=== PATIENT | female | born 1960 | race Caucasian/White ===

== ENCOUNTER 2020-09-16 12:25 | Inpatient (IN) | payer BC, MEDICAID ==
[~2020-09-16] VITALS: Ht 167.6 cm; Wt 74.4 kg
[2020-09-16] VITALS (7 sets, daily range): BP systolic 108–119; BP diastolic 66–85
--- NOTE | 2020-09-16 12:45 | NUR ---
MOVE SHEET SUBMITTED AND CALLED FOR TELE BED.
[2020-09-16] MEDS ORDERED: FUROSEMIDE 40 MG/4 ML VIAL IV ONE (13:00)
[2020-09-16] MEDS ORDERED: NITROGLYCERIN 0.4 MG/TAB BOTTLE SL ONE (13:00)
[2020-09-16] MEDS ORDERED: POTA10CA43 PO (13:01)
[2020-09-16] MEDS ORDERED: FURO20TA4 PO (13:01)
[2020-09-16] MEDS ORDERED: LISI10TA5 PO (13:01)
[2020-09-16 13:08] LABS: BASOPHILS % (AUTO) 0.1 % (0.0-2.0); HEMATOCRIT 40 % (33-45); HEMOGLOBIN 12.1 g/dL (11.5-14.8); LYMPHOCYTES # (AUTO) 0.4 /CMM (0.8-4.8); LYMPHOCYTES % (AUTO) 3.8 % (20.0-44.0); MEAN CORPUSCULAR HGB CONC 30 g/dl (31.0-36.0); MEAN CORPUSCULAR VOLUME 89 fL (82-100); MONOCYTES # (AUTO) 0.7 /CMM (0.1-1.30); MONOCYTES % (AUTO) 7.2 % (2.0-12.0); NEUTROPHILS # (AUTO) 8.6 /CMM (1.8-8.9); NEUTROPHILS % (AUTO) 88.9 % (43.0-81.0); PLATELET COUNT (AUTO) 231 /CMM (150-450); RED BLOOD CELL COUNT(AUTO) 4.46 MIL/uL (4.0-5.2); WHITE BLOOD COUNT (AUTO) 9.7 K/uL (4.3-11.0)
[2020-09-16 13:09] LABS: ABG BASE EXCESS 1.9 mmol/L; ABG OXYGEN SATURATION 89.1 % (92.0-98.5); ABG PCO2 37.5 mmHg (35.0-45.0); ABG PH 7.454 (7.350-7.450); ABG PO2 61.4 mmHg (75.0-100.0); AaDO2 151.8 mmHg; COHb 0.2 % (0.5-1.5); MetHb 0.3 % (0.0-1.5); O2Hb 88.7 % (94.0-97.0); SITE, ABG Right Radial; VENT MODE, BG NC 4 L
--- NOTE | 2020-09-16 13:09 | NUR ---
[facility] TO ER BED 5. AAOX2. NOT IN RESP DISTTRESS BUT SATTING @ 84% DESPITE BEING ON O2 VIA NC @ 4LPM. PT IS BROUGHT LOW O2 SAT REPORTED IN THE 70-80S. PT IS CHF AND COPD. PT IS NOTED WITH GENERALIZED EDEMA. WAS A THE BEDSIDE FOR EVAL. ORDERS RECEIVED, NOTED ADN CARRIED OUT. IV TYRELL ESTABLISHED ON L AC 22G. BLOOD DRAWN AND GIVEN TO DRY KILN BURNER.
[2020-09-16 13:16] LABS: CARBON DIOXIDE 23 mmol/L (21-32); CHLORIDE 100 mmol/L (98-107); CREATININE 0.9 mg/dL (0.6-1.3); GLUCOSE 101 mg/dL (74-106); POTASSIUM 5.5 mmol/L (3.5-5.1); SODIUM SERUM 133 mmol/L (136-145); UREA NITROGEN, BLOOD 51 mg/dL (7-18)
[2020-09-16] MEDS ORDERED: FUROSEMIDE 40 MG/4 ML VIAL ONE (13:19)
[2020-09-16] MEDS ORDERED: NITROGLYCERIN 0.4 MG/TAB BOTTLE ONE (13:19)
[2020-09-16] MEDS ORDERED: ALBU90AE INH (13:21)
--- NOTE | 2020-09-16 13:22 | NUR ---
RT AT BEDSIDE, PLACING PT ON BIPAP.
--- NOTE | 2020-09-16 13:26 | NUR ---
[facility] CALLED LINE CONTROLLER PAGED.
--- NOTE | 2020-09-16 13:27 | NUR ---
ORDERED TO HOLD NITRO STAT D/T BP 112/72. NOTED AND CARRIED OUT
[2020-09-16 13:41] LABS: ALANINE AMINOTRANSFERASE < 6 U/L (12-78); ALBUMIN 2.5 g/dL (3.4-5.0); ALKALINE PHOSPHATASE 158 U/L (46-116); ASPARTATE AMINOTRANSFERASE 56 U/L (15-37); BILIRUBIN,DIRECT 0.8 mg/dL (0.0-0.2); BILIRUBIN,TOTAL 1.1 mg/dL (0.2-1.0); TOTAL PROTEIN, SERUM 6.6 g/dL (6.4-8.2)
--- NOTE | 2020-09-16 13:41 | NUR ---
CALLED [facility] AGAIN ITS BEA
[2020-09-16 14:00] LABS: B-TYPE NATRIURETIC PEPTIDE 39539 PG/ML (0-125)
[2020-09-16] MEDS ORDERED: MAG HYDROX/AL HYDROX/SIMETH 30 ML UDC PO PRN (14:00)
[2020-09-16] MEDS ORDERED: ENOXAPARIN SODIUM 30 MG/0.3 ML DISP.SYRIN SQ SCH (14:00)
[2020-09-16] MEDS ORDERED: Z GUARD REMEDY 2 OZ OINT TP PRN (14:00)
[2020-09-16] MEDS ORDERED: ACETAMINOPHEN 325 MG TABLET PO PRN (14:00)
[2020-09-16] MEDS ORDERED: ONDANSETRON HCL/PF 4 MG/2 ML VIAL IVP PRN (14:00)
[2020-09-16] MEDS ORDERED: HYDROCODONE/APAP 5/325MG TABLET PO PRN (14:00)
[2020-09-16] MEDS ORDERED: MAGNESIUM HYDROXIDE 30 ML UDC PO PRN (14:00)
[2020-09-16] MEDS ORDERED: SODIUM POLYSTYRENE SULFONATE 15 G/60 ML BOTTLE PO ONE (14:30)
[2020-09-16] MEDS ORDERED: ASPIRIN 325 MG TABLET PO SCH (14:30)
--- NOTE | 2020-09-16 14:51 | NUR ---
LAB CALLED TRIPONIN 2.4
[2020-09-16] MEDS ORDERED: SENN-175 PO (14:55)
[2020-09-16] MEDS ORDERED: MIDO10TA PO (14:55)
[2020-09-16] MEDS ORDERED: POLY17PO4 PO (14:55)
[2020-09-16] MEDS ORDERED: PRED20TA PO (14:55)
[2020-09-16] MEDS ORDERED: LISI2.5T2 PO (14:55)
[2020-09-16] MEDS ORDERED: PANT40SU PO (14:55)
[2020-09-16] MEDS ORDERED: CARV3.12 PO (14:55)
[2020-09-16] MEDS ORDERED: DIGO250T PO (14:55)
[2020-09-16] MEDS ORDERED: HEPA100D33 SUBCUT (14:55)
[2020-09-16] MEDS ORDERED: MULT-439 PO (14:55)
[2020-09-16] MEDS ORDERED: ACET-2605 PO (14:55)
[2020-09-16] MEDS ORDERED: LACT20SO4 PO (14:55)
[2020-09-16] MEDS ORDERED: QUET25TA PO (14:55)
[2020-09-16] MEDS ORDERED: CRAN400C PO (14:55)
[2020-09-16] MEDS ORDERED: ACET325T53 PO (14:55)
[2020-09-16] MEDS ORDERED: ASCO500C17 PO (14:55)
[2020-09-16] MEDS ORDERED: BISA10SU61 RC (14:55)
[2020-09-16] MEDS ORDERED: NA P133E RC (14:55)
[2020-09-16] MEDS ORDERED: LORA-259 PO (14:55)
[2020-09-16] MEDS ORDERED: NICO-677 TD (14:55)
--- NOTE | 2020-09-16 15:43 | NUR ---
nitroglyrin 0.4sl given as per md ordered. bp is now 130/79
--- NOTE | 2020-09-16 15:48 | NUR ---
ROOM GIVEN 263.
--- NOTE | 2020-09-16 15:57 | NUR ---
pt placed back to bipap.
--- NOTE | 2020-09-16 16:00 | NUR ---
BIBPAP SETTIN/5 RATE 14 02 40%
--- NOTE | 2020-09-16 16:34 | NUR ---
REPORT GIVEN TO JETT TURPIN FOR MARY
--- NOTE | 2020-09-16 16:49 | NUR ---
PT TRANSPORTED TO UNIT ON [facility] EMT, RT AND RN AT BEDSIDE W/ ACLS PROTOCOL. NAD NOTED DURING TRAANSPORT.
--- NOTE | 2020-09-16 17:00 | NUR ---
RN ADMITTING NOTES ADMITTED A 60 Y/O FEMALE TO UNIT VIA GURNEY ACCOMPANIED BY RT AND RN, A/O X2. NO SIGNS OF DISTRESS NOTED AT THIS TIME, ABLE TO MAKE NEEDS KNOWN. PATIENT ORIENTED TO ROOM, UNIT AND STAFF. ON OXYGEN 5LPM VIA NC. V/S TAKEN AND RECORDED. IV ACCESS ON LAC #22, SL. SOME PHYSICAL ASSESSMENT DONE, TOOK SOME PICTURES BUT PATIENT REFUSED TO BE TURNED SO UNABLE TO ASSESS BACK AREA. ALSO NOTED OPEN WOUND ON LEFT ELBOW BUT PATIENT REFUSED PICTURES SAYING TO LEAVE HER ALONE BECAUSE SHE WANTS TO REST. SAFETY MEASURES INITIATED, BED PLACED IN LOWEST LOCKED POSITION WITH SIDE RAILS UP X2. CALL LIGHT PLACED WITHIN EASY REACH. WILL CONTINUE TO MONITOR.
[2020-09-16] MEDS: CARVEDILOL 3.125 MG TABLET PO SCH (17:33)
[2020-09-16] MEDS ORDERED: HEPARIN INFUSION/D5W 500 ML IV PRN (18:00)
--- NOTE | 2020-09-16 18:43 | NUR ---
RN NOTES PATIENT IN BED RESTING COMFORTABLY IN MODERATE HIGH BACK. A/O X2, ABLE TO MAKE NEEDS KNOWN. ON OXYGEN 5LPM VIA NC SATING @95%. NO SIGNS OF DISTRESS NOTED AT THIS TIME. IV ACCESS ON LAC #22, FC IN PLACE, DRAINING FREELY TO GRAVITY. HEPARIN DRIP WAS ORDERED, SPOKE TO PHARMACY ([facility]), THEY WILL SEND THE HEPARIN SOON THEY GET RESULTS FOR PT/PTT. SAFETY MEASURES IN PLACE, WILL ENDORSE TO SIGN PAINTER HELPER NURSE FOR MARY.
--- NOTE | 2020-09-16 19:35 | NUR ---
STORE CUSTODIAN OPENING NOTES RECEIVED PT IN BED. A/O X 2-3. PT IS AROUSABLE UPON TACTILE STIMULATION. PT IS CURRENTLY ON OXYGEN 5L VIA NASAL CANNULA TOLERATING WELL. SATURATING AT 97% NO S/S OF RESP DISTRESS OR OR DIFFICULTY BREATHING OR SOB NOTED AT THIS TIME. PT ON TELE MONITOR IS 115 SINUS TACH BASELINE. IV SITE LEFT AC FLUSHED ASEPTICALLY, LINE IS PATENT. PT HAS ARTHUR CATHETER DRAINING CLEAR YELLOW URINE. PT DENIES PAIN AT THIS TIME. PT IS ABLE TO MOVE FREELY WITHIN BED. GENERALIZED EDEMA NOTED. AT THIS TIME DENIES SACRUM SKIN CHECK. WILL F/U. SAFETY MEASURES IN PLACE, HOB ELEVATED ACCORDING TO PT COMFORT LEVEL. BED IS LOCKED IN LOWEST POSITION WITH ALARM ON. CALL LIGHT WITHIN REACH. ID CONFIRMED AND ON PT WILL CONTINUE TO MONITOR.
[2020-09-16] MEDS ORDERED: HEPARIN INFUSION/D5W 500 ML IV ONE (20:01)
[2020-09-16] MEDS: DILTIAZEM HCL 50 MG IV IV PRN (20:11)
--- NOTE | 2020-09-16 20:11 | NUR ---
HEART RATE NOTED TO BE 124, ADMIN PRN CARDIZEM 10MG/2ML ORDERED. UNABLE TO SCAN VIAL. CHARGE NURSE AWARE, NURSING SCALLOP SHUCKER AWARE.
--- NOTE | 2020-09-16 20:25 | NUR ---
HEPARIN DRIP STARTED WITH CHARGE NURSE, ADMINISTERED ORDERED. TITRATE PER PROTOCOL, ORDER FOR REPEAT PT/INR/APTT MADE TO FOLLOW UP Q6H.
[2020-09-16] MEDS: FUROSEMIDE 40 MG/4 ML VIAL IV SCH (20:31)
--- NOTE | 2020-09-16 21:16 | NUR ---
PT WITH HX OF COPD, NOTIFIED RT OF SATURATION OF 97-98%. TITRATED DOWN TO 1L AT THIS TIME, SATURATING AT 93%. PT TOLERATING, NO S/S OF RESP DISTRESS OR SOB OR DIFFICULTY BREATHING. AT THIS TIME, PT SOMEWHAT DROWSY, RESPONDS TO TOUCH AND VERBAL STIMULATION.
[2020-09-17] VITALS (14 sets, daily range): BP systolic 101–131; BP diastolic 33–85
--- NOTE | 2020-09-17 01:50 | NUR ---
PT CLEANED AND LINENS CHANGED, COOPERATIVE WITH CARE. REQUESTS TO SLEEP.
--- NOTE | 2020-09-17 02:10 | NUR ---
PT NOTED TO HAVE BLOOD PRESENT IN THE URINE. NOTIFIED AND SPOKE WITH ANATOMIC PATHOLOGY ASSISTANT JANENE GOLDSMITH, ORDERS TO HOLD HEPARIN DRIP AT THIS TIME AND FOLLOW UP WITH PT/INR/APTT STAT
--- NOTE | 2020-09-17 02:25 | NUR ---
LAB AT BEDSIDE
--- NOTE | 2020-09-17 02:45 | NUR ---
PT AWAKE, EATING WELL. VERBALIZES HUNGER AFTER SLEEPING ALL DAY
--- NOTE | 2020-09-17 03:30 | NUR ---
HEPARIN STILL HELD AT THIS TIME. HEMATURIA STILL PRESENT. STILL PENDING PTT LAB RESULT. CORE LOADER AWARE.
--- NOTE | 2020-09-17 03:50 | NUR ---
LAB RESULT OF PTT OF 45.3. MD AWARE, CONTINUE TO HOLD HEPARIN.
[2020-09-17 04:42] LABS: EOSINOPHILS % (AUTO) 0.1 % (0.0-6.0); HEMATOCRIT 34 % (33-45); HEMOGLOBIN 10.8 g/dL (11.5-14.8); LYMPHOCYTES # (AUTO) 0.7 /CMM (0.8-4.8); MEAN CORPUSCULAR HGB CONC 32 g/dl (31.0-36.0); MEAN CORPUSCULAR VOLUME 84 fL (82-100); MONOCYTES # (AUTO) 0.7 /CMM (0.1-1.30); NEUTROPHILS # (AUTO) 6.5 /CMM (1.8-8.9); NEUTROPHILS % (AUTO) 81.9 % (43.0-81.0); PLATELET COUNT (AUTO) 275 /CMM (150-450); RED BLOOD CELL COUNT(AUTO) 4.03 MIL/uL (4.0-5.2)
[2020-09-17 04:53] LABS: CALCIUM, SERUM 8.6 mg/dL (8.5-10.1); CREATININE 0.9 mg/dL (0.6-1.3); MAGNESIUM 1.9 mg/dL (1.8-2.4); PHOSPHORUS 3.6 mg/dL (2.5-4.9); POTASSIUM 4.2 mmol/L (3.5-5.1)
--- NOTE | 2020-09-17 05:30 | NUR ---
PT NOTED TO HAVE HR 129, CARDIZEM PRN TO F/U. CHARGE MADE AWARE. WILL CONTINUE TO MONITOR.
[2020-09-17] MEDS: DILTIAZEM HCL 50 MG IV IV PRN (05:35)
--- NOTE | 2020-09-17 06:25 | NUR ---
F/U UP WITH DIESEL MAINTENANCE TECHNICIAN REGARDING CXR RESULTS, CONTINUE TO HOLD FEEDING AT THIS TIME. F/U WITH MORNING STAFF. F/U WITH HEPARIN HOLD, WAITING UNTIL TROPONIN RESULT COMES BACK. STAT LAB ORDERED. CHARGE NURSE MADE AWARE. Addendum: 09/17/20 at 0623 by BERNIE FORRESTER RN DISREGARD, WRONG PATIENT
--- NOTE | 2020-09-17 06:27 | NUR ---
F/U WITH PROPELLER TESTER REGARDING HEPARIN DRIP HOLD, WAITING UNTIL TROPONIN RESULT COMES BACK. STAT LAB ORDERED. CHARGE NURSE MADE AWARE.
--- NOTE | 2020-09-17 06:41 | NUR ---
RIGHT OF WAY CLEARER CLOSING NOTES PT WOKE UP INTERMITTENTLY THROUGHOUT SHIFT, ATE WELL. TOWARDS END OF SHIFT, PT C/O OF BEING HOT, TEMP CHECKED 97.7 GAVE COLD COMPRESS FOR COMFORT MEASURES AT PT REQUEST. PT CAN BECOME AGITATED AND UNCOOPERATIVE AT TIMES, RESPONSIVE TO REDIRECTION/REORIENTATION/EDUCATION. ON BEDSIDE MONITOR, PT IS SINUS TACH 112 BASELINE. PT CURRENTLY ON 1L OF O2 VIA NASAL CANNULA, SATURATING WELL AT 92%. NO S/S OF RESP DISTRESS NOTED AT THIS TIME. PT IV LINE FLUSHED, HEPARIN STILL ON HOLD ORDERED PENDING TROPONIN RESULTS. SKIN CHECK DONE. RIGHT BUTTOCK SKIN TEAR NOTED. SAFETY MEASURES IN PLACE, HOB ELEVATED. SIDE RAILS UP X 2. BED LOCKED IN LOWEST POSITION WITH ALARM ON. WILL ENDORSE TO AM NURSE FOR CONTINUATION OF CARE.
--- NOTE | 2020-09-17 07:09 | NUR ---
RN NOTES RECEIVED PATIENT IN BED RESTING COMFORTABLY IN MODERATE HIGH BACK REST. A/O X2, ABLE TO MAKE NEEDS KNOWN. ON OXYGEN 1LPM VIA NC SATING @96%. NO SIGNS OF DISTRESS NOTED AT THIS TIME. IV ACCESS ON LAC #22, FC IN PLACE, DRAINING FREELY TO GRAVITY. SAFETY MEASURES IN PLACE, WILL CONTINUE TO MONITOR. Addendum: 09/17/20 at 0714 by PAPI SHERWOOD RN Jimmie TURPIN RN NOTES.
[2020-09-17] MEDS: ALBUTEROL FS 2.5 MG/3 ML VIAL.NEB NEB SCH ×3 (07:35→19:54)
[2020-09-17] MEDS: ASPIRIN 325 MG TABLET PO SCH (08:10)
[2020-09-17] MEDS: CARVEDILOL 3.125 MG TABLET PO SCH (08:10)
[2020-09-17] MEDS: FUROSEMIDE 40 MG/4 ML VIAL IV SCH ×3 (08:11→21:58)
--- NOTE | 2020-09-17 08:35 | NUR ---
RT PT REFUSED INHALATION TX WHAT AN MDI/ INHALER INSTEAD NOTIFIED NURSE TO CALL PHARMACY TO CHANGE ORDER ON 1L NC, PT KEEPS REMOVING 02 SP02 89%
[2020-09-17] MEDS ORDERED: BISACODYL SUPP (10 MG) 10 MG/SUPP.RECT SUPP.RECT RC PRN (09:00)
[2020-09-17] MEDS ORDERED: NA PHOS,M-B/NA PHOS,DI-BA 1 EA ENEMA RC PRN (09:00)
[2020-09-17] MEDS ORDERED: POLYETHYLENE GLYCOL 3350 17 GM POWD.PACK PO PRN (09:00)
[2020-09-17] MEDS ORDERED: ENOXAPARIN SODIUM 40 MG/0.4 ML DISP.SYRIN SQ SCH (09:00)
[2020-09-17] MEDS ORDERED: CARVEDILOL 3.125 MG TABLET PO SCH (09:00)
[2020-09-17] MEDS ORDERED: Medication Not On Formulary EA (Midodrine Hcl 10 MG) PO SCH (09:00)
[2020-09-17] MEDS ORDERED: LACTULOSE 10 G/15 ML UDC (PYXIS) PO PRN ×2 (09:30)
[2020-09-17] MEDS: QUETIAPINE FUMARATE 25 MG TABLET PO SCH ×2 (09:31→16:10)
[2020-09-17] MEDS: MULTIVIT W/MINERALS 1 TAB TABLET PO SCH (09:31)
[2020-09-17 10:20] LABS: THYROID STIMULATING HORMONE 0.649 uIU/mL (0.358-3.74)
[2020-09-17] MEDS: ENOXAPARIN SODIUM 80 MG/0.8 ML DISP.SYRIN SQ SCH ×2 (10:22→21:59)
--- NOTE | 2020-09-17 11:00 | NUR ---
RN NOTES PATIENT TRANSFERRED TO [facility], ROOM 304-1, NO SIGNS OF DISTRESS NOTED. REPORT GIVEN BEDSIDE TO CAROLINE.
--- NOTE | 2020-09-17 11:00 | NUR ---
MS TELE NOTES RECEIVED PATIENT FROM ICU IN STABLE CONDITION. PT TRANSPORTED IN BED, ON O2 @1 L VIA NC WITH O2 SATURATION @99%. NO C/O SOB, NO ACUTE RESPIRATORY DISTRESS NOTED, PATIENT BREATHING EVEN AND UNLABORED. PT ON TELE MONITOR READING SINUS TACH HR @115. PER REPORT HER BASELINE IS IN THE 110'S. IV TO LT AC #22G PATENT AND INTACT, FLUSHING WELL, WITH NO SIGNS OF INFILTRATION NOTED.BP:114/78 HR:115 T:98.2 R:18 O2 SAT 99%. BED IS AT LOWEST AND LOCKED POSITION WITH ALARM ON AND CALL LIGHT WITH IN REACH. WILL CONTINUE TO MONITOR PATIENT THROUGH SHIFT. ALL SAFETY MEASURES IN PLACE
[2020-09-17] MEDS: CEFTRIAXONE 1 G in IV D5W 50 ML IV SCH (11:28)
[2020-09-17] MEDS: AZITHROMYCIN 500 MG in IV D5W 250 ML IV SCH (12:28)
[2020-09-17] MEDS: NICOTINE PATCH (14MG) 14 MG PATCH.TD24 TD SCH (12:29)
[2020-09-17] MEDS: METOPROLOL SUCCINATE 50 MG TAB.SR.24H PO SCH (12:29)
[2020-09-17] MEDS: DIGOXIN 0.25 MG TABLET PO SCH (12:29)
--- NOTE | 2020-09-17 14:43 | NUR ---
TANK CAR INSPECTOR NOTES RECEIVED CALL FROM GEORGE AT THE LAB WITH TROPONIN RESULTS @1.960 TRENDING DOWN FROM LAST RESULTS 2.140 MD NOTIFIED.
[2020-09-17] MEDS: LORAZEPAM 1 MG TABLET PO PRN (15:55)
--- NOTE | 2020-09-17 18:48 | NUR ---
MILL OPERATOR HELPER CLOSING NOTES PATIENT IN BED A/OX 2-3; CONFUSED. ON O2 @1L VIA NC. PT WITH O2 SAT 98-99%. NO ACUTE RESPIRATORY DISTRESS NOTED BREATHING EVEN AND UNLABORED. ON TELE MONITOR READING SINU TACH WITH HR @101. PT WITH ARTHUR IN PLACE. IV TO LT AC #22G KEPT SL. PT WITH SITTER IN ROOM. BED ALARM IS ON. BED IS AT LOWEST POSITION AND LOCKED WITH SIDE RAILS UPX3 AND CALL LIGHT WITHIN REACH. WILL ENDORSE TO ONCOMING SHIFT.
--- NOTE | 2020-09-17 19:36 | NUR ---
CYBER OPS PLANNER OPENING NOTES PATIENT SLEEPING IN BED; AWAKENS TO TOUCH. A/OX1-2. 1 TO 1 SITTER PRESENT FOR PATIENT SAFETY. ON 2L NC; NO S/S OF ACUTE RESPIRATORY DISTRESS; BREATHING IS EVEN AND UNLABORED. NO S/S OF PAIN NOTED. TELE MONITOR READING SINUS TACH, HEART RATE 102. IV PRESENT ON LEFT AC, SIZE 22, INTACT & PATENT, HEP LOCKED. SAFETY MEASURES IN PLACE AND PATIENT'S NEEDS MET. BED LOCKED, ALARM ON, SIDE RAILS X2, CALL LIGHT WITHIN REACH. WILL CONTINUE TO MONITOR.
[2020-09-17] MEDS: SENNOSIDES 8.6 MG TABLET PO SCH (21:59)
[2020-09-17] MEDS ORDERED: PRAVASTATIN SODIUM 20 MG TABLET PO SCH (22:00)
[2020-09-17] MEDS: ATORVASTATIN 10 MG TABLET PO SCH (22:00)
--- NOTE | 2020-09-17 22:13 | NUR ---
INTERNET MARKETING SPECIALIST NOTES NOTIFIED MANUFACTURING SOFTWARE ENGINEER LEAD GENERATOR, JANENE GOLDSMITH, THAT SCHEDULED LASIX 40 MG IV HAS NO BP PARAMETERS NOTED ON THE EMAR; PATIENT'S MANUAL BP 108/70. PER JANENE, HOLD LASIX FOR NOW AND RECHECK BP IN 2 HOURS. .
--- NOTE | 2020-09-17 22:57 | NUR ---
PULVERIZER MILL OPERATOR NOTES PATIENT REFUSING TO TAKE PHOTOS OF SKIN AT THIS TIME. PATIENT STATES THAT SHE IS TOO TIRED AND WILL WAIT UNTIL TOMORROW MORNING TO TAKE PHOTOS.
[2020-09-18 00:24] VITALS: BP 102/75
--- NOTE | 2020-09-18 00:25 | NUR ---
TANK TRUCK ENGINE MECHANIC NOTES PATIENT'S BP: 102/75, HR: 104. PER BRIDGE INSPECTOR BOARDING SPECIALIST, JANENE GOLDSMITH, HOLD SCHEDULED LASIX 40 MG IV.
[2020-09-18] MEDS: LORAZEPAM 1 MG TABLET PO PRN ×2 (01:29→14:33)
--- NOTE | 2020-09-18 01:29 | NUR ---
GANG HEAD SAW OPERATOR NOTES PATIENT RESTLESS, ANXIOUS, AGITATED; SPO2 98% ON 2L NC. PATIENT STATED THAT SHE WANTS TO GO OUTSIDE TO SMOKE A CIGARETTE. INFORMED PATIENT THAT SHE IS NOT ABLE TO GO OUTSIDE AT THIS TIME AND IS UNSTABLE TO SMOKE D/T HER CONDITION. PATIENT CONTINUES TO INSIST THAT SHE WANTS TO SMOKE. PRN ATIVAN 1MG PO GIVEN TO PATIENT FOR ANXIETY. WILL CONTINUE TO MONITOR.
[2020-09-18] MEDS ORDERED: LORAZEPAM INJ 2 MG/ML VIAL IM ONE (03:00)
[2020-09-18 04:04] LABS: ABG BASE EXCESS 0.9 mmol/L; ABG OXYGEN SATURATION 94.1 % (92.0-98.5); ABG PCO2 37.2 mmHg (35.0-45.0); ABG PH 7.442 (7.350-7.450); ABG PO2 74.5 mmHg (75.0-100.0); AaDO2 167.9 mmHg; COHb 1.2 % (0.5-1.5); MetHb 0.2 % (0.0-1.5); O2Hb 92.8 % (94.0-97.0); SITE, ABG Right Radial
--- NOTE | 2020-09-18 04:16 | NUR ---
STAT ABG PERFORMED ON PATIENT DUE TO LOW SaO2 READING. OBTAINED ABG SAMPLE WHILE PATIENT ON 5LNC. RELAYED RESULTS TO RN AND SUGGESTED TO TITRATE DOWN O2 FLOW BECAUSE PATIENT IS COPD. Addendum: 09/18/20 at 0419 by DONNIE RUTH RT Amended: Links added.
--- NOTE | 2020-09-18 04:23 | NUR ---
PRODUCTION ASSEMBLY SUPERVISOR NOTES PATIENT CURRENTLY CALM IN BED, HOB ELEVATED. NO S/S OF ACUTE RESPIRATORY DISTRESS; SPO2 96 ON 2L NC. PATIENT STILL REFUSING SKIN PHOTOS AT THIS TIME. WILL CONTINUE TO MONITOR.
[2020-09-18 04:26] VITALS: BP 122/76
--- NOTE | 2020-09-18 07:28 | NUR ---
STUDENT RECRUITER CLOSING NOTES PATIENT SLEEPING. A/OX2. 1 TO 1 SITTER PRESENT FOR PATIENT SAFETY. ON 2L NC; NO S/S OF ACUTE RESPIRATORY DISTRESS; BREATHING IS EVEN AND UNLABORED. NO S/S OF PAIN NOTED. TELE MONITOR READING SINUS TACH, HEART RATE 108. IV PRESENT ON RIGHT HAND, SIZE 22, INTACT & PATENT, HEP LOCKED. ARTHUR CATH PRESENT AND DRAINING WELL, 925 CC OF CLEAR YELLOW URINE EMPTIED. SAFETY MEASURES IN PLACE AND PATIENT'S NEEDS MET. BED LOCKED, ALARM ON, SIDE RAILS X2, CALL LIGHT WITHIN REACH. ENDORSED TO DAY SHIFT RN PLAN OF CARE.
[2020-09-18] MEDS: ALBUTEROL FS 2.5 MG/3 ML VIAL.NEB NEB SCH ×3 (07:35→19:30)
--- NOTE | 2020-09-18 07:35 | NUR ---
RN OPENING NOTE THE PATIENT IS RECEIVED IN BED. PATIENT IS ALERT AND ORIENTED X3. RECEIVING OXYGEN AT 2L/MIN VIA NASAL CANNULA AND DENIES SOB. RESPIRATION REGULAR AND UNLABORED AT REST, HOWEVER, THE PATIENT VERBALIZES SOB WITH EXERTION. THE PATIENT DENIES PAIN. RIGHT HAND G 22 PATENT AND SALINE LOCKED. TELE BOX READING IS SINUS TACHYCARDIA 111. BED LOW AND LOCKED. SIDE RAILS UP X3. SITTER AT THE BEDSIDE. CALL LIGHT WITHIN REACH. WILL CONTINUE TO MONITOR.
[2020-09-18] MEDS: ASPIRIN 325 MG TABLET PO SCH (08:09)
[2020-09-18] MEDS: PANTOPRAZOLE 40 MG/PACK PACK PO SCH (08:09)
[2020-09-18] MEDS: FUROSEMIDE 40 MG/4 ML VIAL IV SCH ×4 (08:09→20:19)
[2020-09-18] MEDS: MULTIVIT W/MINERALS 1 TAB TABLET PO SCH (08:09)
[2020-09-18] MEDS: QUETIAPINE FUMARATE 25 MG TABLET PO SCH ×2 (08:10→17:44)
[2020-09-18] MEDS: NICOTINE PATCH (14MG) 14 MG PATCH.TD24 TD SCH (08:10)
[2020-09-18] MEDS: ENOXAPARIN SODIUM 80 MG/0.8 ML DISP.SYRIN SQ SCH (08:25)
[2020-09-18] MEDS: LISINOPRIL (5MG) 5 MG TABLET PO SCH (09:28)
[2020-09-18 10:22] LABS: BASOPHILS % (AUTO) 0.2 % (0.0-2.0); EOSINOPHILS % (AUTO) 1.2 % (0.0-6.0); HEMATOCRIT 35 % (33-45); HEMOGLOBIN 10.7 g/dL (11.5-14.8); LYMPHOCYTES # (AUTO) 0.5 /CMM (0.8-4.8); LYMPHOCYTES % (AUTO) 9.2 % (20.0-44.0); MEAN CORPUSCULAR HGB CONC 31 g/dl (31.0-36.0); MEAN CORPUSCULAR VOLUME 85 fL (82-100); MONOCYTES # (AUTO) 0.5 /CMM (0.1-1.30); MONOCYTES % (AUTO) 9.3 % (2.0-12.0); NEUTROPHILS # (AUTO) 4.4 /CMM (1.8-8.9); NEUTROPHILS % (AUTO) 80.1 % (43.0-81.0); PLATELET COUNT (AUTO) 276 /CMM (150-450); RED BLOOD CELL COUNT(AUTO) 4.04 MIL/uL (4.0-5.2); WHITE BLOOD COUNT (AUTO) 5.5 K/uL (4.3-11.0)
[2020-09-18 10:43] LABS: ALBUMIN 2.1 g/dL (3.4-5.0); BILIRUBIN,TOTAL 0.8 mg/dL (0.2-1.0); CREATININE 0.8 mg/dL (0.6-1.3); MAGNESIUM 1.7 mg/dL (1.8-2.4); PHOSPHORUS 2.3 mg/dL (2.5-4.9); POTASSIUM 3.6 mmol/L (3.5-5.1); TOTAL PROTEIN, SERUM 5.8 g/dL (6.4-8.2)
[2020-09-18] MEDS: CEFTRIAXONE 1 G in IV D5W 50 ML IV SCH (10:56)
[2020-09-18 11:12] LABS: THYROID STIMULATING HORMONE 2.142 uIU/mL (0.358-3.74)
--- NOTE | 2020-09-18 11:33 | NUR ---
RN NEW ORDER RECEIVED AN CALL FROM DR EASLEY WITH A NEW ORDER OF CT ANGIO HEART WITH 3D IMAGE. THE ORDER IS READ BACK, VERIFIED. NOTED AND CARRIED OUT.
--- NOTE | 2020-09-18 11:34 | NUR ---
RN AWARE OF TROPONIN LEVEL DR EASLEY IS MADE AWARE OF TROPONIN LEVEL OF 1.203. PER MD NO NEW ORDER REGARDING TROPONIN.
[2020-09-18] MEDS ORDERED: IOHEXOL-350 100 ML VIAL IV ONE (11:56)
[2020-09-18] MEDS ORDERED: IV NS 0.9% 250 ML IV ONE (11:56)
[2020-09-18] MEDS ORDERED: METOPROLOL TARTRATE INJ 5 MG/5 ML AMPUL IVP PRN (12:00)
[2020-09-18] MEDS ORDERED: NITROGLYCERIN 0.4 MG/TAB BOTTLE SL ONE (12:00)
[2020-09-18] MEDS: METOPROLOL SUCCINATE 50 MG TAB.SR.24H PO SCH (12:00)
--- NOTE | 2020-09-18 12:20 | NUR ---
RN REFUSED CT ANGIO OF HEART THE PATIENT REFUSED CT ANGIO OF HEART WITH [address] EASLEY IS MADE AWARE.
--- NOTE | 2020-09-18 12:40 | NUR ---
RN NOTE NITROSTAT SL 0.4 MG DUE AT 1200 IS NOT ADMINISTERED DUE TO PATIENT REFUSED CT ANGIO HEART.
[2020-09-18] MEDS: AZITHROMYCIN 500 MG in IV D5W 250 ML IV SCH (12:47)
[2020-09-18] MEDS: DIGOXIN 0.25 MG TABLET PO SCH (13:46)
[2020-09-18] MEDS ORDERED: K PHOS NEUTRAL 250 MG TABLET PO ONE (16:30)
--- NOTE | 2020-09-18 17:06 | NUR ---
RN MG=1.7 DR EASLEY IS MADE AWARE OF MG IS 1.7. RECEIVED AN ORDER FOR MAGNESIUM 2 GRAM IV. READ BACK, VERIFIED. NOTED AND CARRIED OUT.
[2020-09-18 18:09] LABS: BILIRUBIN,URINE NEGATIVE (NEGATIVE); BLOOD, URINE TRACE-INTA Ery/uL (NEGATIVE); COLOR,URINE YELLOW (YELLOW); LEUKOCYTE ESTERASE ,URINE NEGATIVE (NEGATIVE); NITRITE, URINE NEGATIVE (NEGATIVE); PROTEIN,URINE NEGATIVE (NEGATIVE); UGLUCOSE NEGATIVE (NEGATIVE); UROBILINOGEN,URINE 0.2 EU/dL (0.2)
[2020-09-18] MEDS: Magnesium 1GM/D5W 100ML PREMIX PIGGYBACK IV SCH ×2 (18:19→19:32)
[2020-09-18 18:25] LABS: BACTERIA,URINE RARE /HPF (None Seen); SQUAMOUS EPITHELIAL CELL,UR 0-2 /HPF (None Seen); WBC,URINE 0-2 /HPF (0-3)
[2020-09-18 18:26] LABS: YEAST,URINE Hyphal filaments /HPF (None Seen)
--- NOTE | 2020-09-18 18:37 | NUR ---
RN CLOSING NOTE THE PATIENT IS ALERT AND ORIENTED X3. DENIES PAIN. RECEIVING OXYGEN AT 2L/MIN VIA NASAL CANNULA AND SATURATION IS AT 94%. DENIES SOB. RESPIRATION REGULAR AND UNLABORED. TELE BOX READING IS SINUS TACHYCARDIA 114. THE PATIENT IS IN NO APPARENT DISTRESS. ARTHUR CATH DRAINING CLEAR, YELLOW COLOR URINE. NO BLADDER DISTENSION NOTED. RIGHT HAND G 22 PATENT AND MAGNESIUM INFUSING PER ORDER. NO S/S INFILTRATION NOTED. BED LOW AND LOCKED. SIDE RAILS UP X3. CALL LIGHT WITHIN REACH. SITTER AT THE BEDSIDE. WILL ENDORSE TO DIRECTOR OF CASEWORK DEPARTMENT.
--- NOTE | 2020-09-18 18:53 | NUR ---
RN NOTE SECOND BAG OF MAGNESIUM SULFATE WILL BE HANDED TO THE TEAM FOREMAN FOR ADMINISTRATION.
--- NOTE | 2020-09-18 19:45 | NUR ---
CIVIL RIGHTS ATTORNEY OPENING NOTES PATIENT RECEIVED RESTING IN BED COMFORTABLY; BREATHING EVEN AND UNLABORED; TOLERATING 2LPM VIA NC WELL; NO SOB NOTED; NO DISTRESS NOTED; PATIENT SLEEPING BUT EASILY AROUSABLE, RESPONDS TO NAME; A/OX2-3, PATIENT REQUESTING TO GO FOR A SMOKE, PATIENT WAS EDUCATED ON SMOKE TIMES PER HOSPITAL POLICY; TELE MONITOR READS S.TACH 112BPM; R HAND # 22 SL INTACT AND PATENT; FLUSHING WELL; ARTHUR CATH IN PLACE WITH YELLOW OUTPUT; SAFETY PRECAUTIONS IMPLEMENTED; BED LOCKED IN LOW POSITION; SIDE RAILSX2; CALL LIGHT WITHIN REACH; WILL CONT TO MONITOR
[2020-09-18 20:00] VITALS: BP 107/71
--- NOTE | 2020-09-18 21:10 | NUR ---
SPECIAL EDUCATION TUTOR NOTES PATIENT A/OX2, CONFUSED; PATIENT REMOVED IV ACCESS; PATIENT REFUSING RE-INSERTION; PATIENT ATTEMPTING TO GET OUT OF BED AND REPORTED SHE WANTS TO GO DOWNSTAIRS TO SMOKE A CIGARETTE; PATIENT REMINDED SHE IS UNABLE TO GO DOWNSTAIRS TO SMOKE A CIGARETTE PER HOSPITAL POLICY; PATIENT REPORTED SHE MENTIONED THIS MORNING THAT SHE IS GOING TO GO HOME; CHARGE NURSE AWARE; IMPROVEMENT LEAD MD MADE AWARE; CALLED ALONSO LIND, TO UPDATE HER REGARDING PATIENT; DAUGHTER'S PHONE IS SHUT OFF AND LEADS TO VOICEMAIL; VOICEMAIL WAS LEFT; WILL CONT TO MONITOR
[2020-09-18] MEDS: ATORVASTATIN 10 MG TABLET PO SCH (21:29)
[2020-09-18] MEDS: SENNOSIDES 8.6 MG TABLET PO SCH (21:30)
[2020-09-19] VITALS: BP 98/66
[2020-09-19 04:00] VITALS: BP 99/61
--- NOTE | 2020-09-19 06:37 | NUR ---
ASSEMBLY LINE MACHINE OPERATOR CLOSING NOTES PATIENT RESTING IN BED COMFORTABLY; A/OX2, CONFUSED; BREATHING EVEN AND UNLABORED; PATIENT TOLERATING 2LPM VIA NC PRN; PATIENT ALSO ABLE TO TOLERATE ROOM AIR; NO SOB NOTED; TELE MONITOR READS SINUS TACHY; PATIENT HAS NO IV ACCESS, REFUSING RE-INSERTION; MD MADE AWARE; PATIENT ALSO WANTS TO GO HOME/LEAVE HOSPITAL; DAUGHTER IS NOT ANSWERING AND HAS NOT CALLED BACK; WILL INFORM DAY SHIFT; ARTHUR CATH IN PLACE, WITH YELLOW OUTPUT; ALL NEEDS RENDERED; SAFETY PRECAUTIONS IMPLEMENTED; BED LOCKED IN LOW POSITION; SIDE RAILSX2; CALL LIGHT WITHIN REACH; WILL ENDORSE MARY TO ONCOMING SHIFT
[2020-09-19] MEDS: ALBUTEROL FS 2.5 MG/3 ML VIAL.NEB NEB SCH ×3 (07:35→20:37)
--- NOTE | 2020-09-19 07:40 | NUR ---
TELE/RN OPENING NOTE Received patient resting in bed, A&O x 2, confused. Denies any pain/discomfort at this time. Breathing even and non-labored on RA, no SOB noted. No cardiac distress noted, on tele monitor reading ST 108. No IV access noted, told patient that I will need to insert one since patient has IV antibiotics. Explained its importance, patient states "later, after I eat." Hopper in place, draining clear yellow urine output well. Sensation from all peripheral extremities intact. Bed locked to its lowest position, side rails x 2 up, call light in hand. Will continue with current medical management.
[2020-09-19] MEDS: PANTOPRAZOLE 40 MG/PACK PACK PO SCH (08:25)
[2020-09-19] MEDS: MULTIVIT W/MINERALS 1 TAB TABLET PO SCH (08:41)
[2020-09-19] MEDS: QUETIAPINE FUMARATE 25 MG TABLET PO SCH ×2 (08:41→17:35)
[2020-09-19] MEDS: NICOTINE PATCH (14MG) 14 MG PATCH.TD24 TD SCH (08:41)
[2020-09-19] MEDS: ASPIRIN 325 MG TABLET PO SCH (08:41)
[2020-09-19] MEDS: LISINOPRIL (5MG) 5 MG TABLET PO SCH (08:41)
[2020-09-19] MEDS: ENOXAPARIN SODIUM 40 MG/0.4 ML DISP.SYRIN SQ SCH (08:59)
--- NOTE | 2020-09-19 09:00 | NUR ---
TELE/RN NOTE Non-administered lovenox 40 mg SQ. Patient refused medication and might have a CTCA today.
--- NOTE | 2020-09-19 09:59 | NUR ---
TELE/RN NOTE Patient refusing to have IV inserted, states "I do not need it. I do not need to be here. I am just waiting to go home." Educated patient the importance of IV and medication compliance, patient states "I understand what you're saying, but I don't think they need to keep me here still."
[2020-09-19] MEDS ORDERED: FUROSEMIDE 100 MG/10 ML VIAL IV SCH (10:00)
--- NOTE | 2020-09-19 10:00 | NUR ---
TELE/RN NOTE Dr. Melendrez at bedside, notified patient's noncompliance to IV insertion despite having to explain the importance of IV antibiotics and IV lasix ordered. Dr. Melendrez discontinued IV antibiotics and ordered bumex 2mg PO daily for diuresis. Notified Dr. Thomas of patient's noncompliance and Dr. Melendrez's order of bumex 2mg PO daily, states to discontinue IV lasix 80 mg x 3 doses. Orders carried out, will continue to monitor patient closely. Addendum: 09/19/20 at 1618 by SARTHAK GAN RN In addition to above, educated patient the importance of CTCA, patient states "I do not care, I do not want that procedure, it will not help me." Notified Dr. Melendrez of patient's refusal.
[2020-09-19] MEDS: BUMETANIDE (1 MG) 1 MG TABLET PO SCH (10:38)
[2020-09-19] MEDS: POTASSIUM CHLORIDE 20 MEQ TAB.PRT.SR PO SCH ×3 (10:38→13:52)
[2020-09-19 11:30] LABS: BASOPHILS % (AUTO) 0.2 % (0.0-2.0); EOSINOPHILS % (AUTO) 1.4 % (0.0-6.0); HEMATOCRIT 35 % (33-45); HEMOGLOBIN 10.9 g/dL (11.5-14.8); LYMPHOCYTES # (AUTO) 0.5 /CMM (0.8-4.8); LYMPHOCYTES % (AUTO) 10.5 % (20.0-44.0); MEAN CORPUSCULAR HGB CONC 31 g/dl (31.0-36.0); MEAN CORPUSCULAR VOLUME 87 fL (82-100); MONOCYTES # (AUTO) 0.5 /CMM (0.1-1.30); NEUTROPHILS # (AUTO) 3.5 /CMM (1.8-8.9); NEUTROPHILS % (AUTO) 75.9 % (43.0-81.0); PLATELET COUNT (AUTO) 254 /CMM (150-450); RED BLOOD CELL COUNT(AUTO) 4.02 MIL/uL (4.0-5.2); WHITE BLOOD COUNT (AUTO) 4.6 K/uL (4.3-11.0)
[2020-09-19] MEDS: METOPROLOL SUCCINATE 50 MG TAB.SR.24H PO SCH (12:00)
[2020-09-19] MEDS: LORAZEPAM 1 MG TABLET PO PRN (12:10)
--- NOTE | 2020-09-19 12:10 | NUR ---
TELE/RN NOTE Patient is agitated and restless, trying to get out of the bed, yelling repeatedly "I want to get a tray for my house." Administered ativan 1 mg PO. Will continue to monitor patient closely.
[2020-09-19] MEDS: DIGOXIN 0.25 MG TABLET PO SCH (12:11)
[2020-09-19 12:39] LABS: ALBUMIN 1.9 g/dL (3.4-5.0); BILIRUBIN,TOTAL 0.7 mg/dL (0.2-1.0); CALCIUM, SERUM 7.9 mg/dL (8.5-10.1); CREATININE 0.7 mg/dL (0.6-1.3); PHOSPHORUS 2.7 mg/dL (2.5-4.9); POTASSIUM 3.3 mmol/L (3.5-5.1); TOTAL PROTEIN, SERUM 5.3 g/dL (6.4-8.2)
[2020-09-19] MEDS ORDERED: POTASSIUM CHLORIDE 20 MEQ TAB.PRT.SR PO ONE (13:51)
--- NOTE | 2020-09-19 14:00 | NUR ---
TELE/RN NOTE Duplicate order of: K DUR 20 MEQ strike med once popped up on EMAR, verified order with pharmacy, states "just non-administer it, it's a duplicate order that shows on your end, but not on ours."
--- NOTE | 2020-09-19 14:00 | NUR ---
TELE/RN NOTE Lab called for patient's critical troponin result of 0.[address] Thomas. Addendum: 09/19/20 at 1617 by SARTHAK GAN RN No new orders at this time.
--- NOTE | 2020-09-19 15:00 | NUR ---
TELE/RN NOTE Attempted to assist patient with bed bath and linen change along with CNC MANAGER, but patient refuses and curses us to "get out of the room." Patient constantly takes off stat-lock from thigh for mosqueda stabilization. Will continue to monitor.
[2020-09-19 15:55] VITALS: BP 94/52
--- NOTE | 2020-09-19 18:32 | NUR ---
TELE/RN CLOSING NOTE Patient resting in bed, A&O x 2, confused. All needs met and attended to. Denies any pain/discomfort at this time. Breathing even and non-labored on 2L oxygen via NC, no SOB noted. No cardiac distress noted, patient removed tele leads because "it annoys" her. No IV access, MD aware. Hopper in place, draining clear yellow urine output well. Sensation from all peripheral extremities intact. Fall precautions maintained. Will endorse to sales support consultant nurse.
[2020-09-19 20:00] VITALS: BP 129/66
--- NOTE | 2020-09-19 20:01 | NUR ---
MS/TELE/RN RECEIVED PATIENT SLEEPING, AROUSES EASILY, COMFORTABLE, NO SIGNS OF DISTRESS NOTED, CALL LIGHT IN REACH, FALL PRECAUTIONS PER PROTOCOL IMPLEMENTED, WILL MONITOR.
[2020-09-19] MEDS: SENNOSIDES 8.6 MG TABLET PO SCH (22:00)
[2020-09-19] MEDS: ATORVASTATIN 10 MG TABLET PO SCH (22:00)
--- NOTE | 2020-09-19 22:00 | NUR ---
MS/TELE/RN PATIENT SLEEPING AT THIS TIME, REFUSED TO TAKE DUE MEDS. WILL TRY AGAIN WHEN PATIENT WAKES UP.
[2020-09-20] VITALS: BP 111/74
[2020-09-20 04:00] VITALS: BP 114/74
--- NOTE | 2020-09-20 06:48 | NUR ---
MS/TELE/RN PATIENT IS AWAKE AT THIS TIME, COMFORTABLE, NO C/O PAIN, NO DISTRESS NOTED, CALL LIGHT IN REACH, STILL REFUSING TELE MONITOR BOX, SHE REFUSED THE TELE MONITOR BOX LAST NIGHT WELL. SHE ALSO REFUSED BLOOD DRAW THIS MORNING PER CHEMICAL WASTE MANAGEMENT TECHNICIAN.WILL ENDORSE.
--- NOTE | 2020-09-20 07:21 | NUR ---
CORNER BEAD OPERATOR OPENING NOTES PATIENT RECEIVED AWAKE IN BED IN NO ACUTE SIGNS OF DISTRESS. HOB ELEVATED. A/O X2. ABLE TO MAKE NEEDS KNOWN, DENIES PAIN OR ANY DISCOMFORTS BUT VERBALIZED THAT SHE WANTS TO GO HOME. ON 02 VIA N/C @ 2LPM, BREATHING EVEN AND UNLABORED. PT REFUSED TELE MONITORING, NO C/O CARDIAC DISTRESS VOICED. NO IV ACCESS,MD AWARE. ARTHRU IN PLACE AND ACTIVELY DRAINING CLEAR YELLOW URINE VIA GRAVITY. SAFETY PRECAUTIONS IN PLACE: BED LOCKED AND IN LOWEST POSITION, SR UP X2, CALL LIGHT W/IN REACH. WILL CONTINUE TO MONITOR.
[2020-09-20] MEDS: ALBUTEROL FS 2.5 MG/3 ML VIAL.NEB NEB SCH ×2 (07:35→13:30)
[2020-09-20] MEDS: PANTOPRAZOLE 40 MG/PACK PACK PO SCH (07:44)
--- NOTE | 2020-09-20 07:49 | NUR ---
RN NOTES PT C/O MILD ACHING PAIN ON HER LOWER BACK, PRN TYLENOL 650MG PO GIVEN AT 0744. WILL CONTINUE TO MONITOR.
[2020-09-20 08:00] VITALS: BP 111/71
[2020-09-20] MEDS: ASPIRIN 325 MG TABLET PO SCH (08:40)
[2020-09-20] MEDS: BUMETANIDE (1 MG) 1 MG TABLET PO SCH (08:40)
[2020-09-20] MEDS: MULTIVIT W/MINERALS 1 TAB TABLET PO SCH (08:41)
[2020-09-20] MEDS: LISINOPRIL (5MG) 5 MG TABLET PO SCH (08:41)
[2020-09-20] MEDS: QUETIAPINE FUMARATE 25 MG TABLET PO SCH ×2 (08:41→17:07)
[2020-09-20] MEDS: ENOXAPARIN SODIUM 40 MG/0.4 ML DISP.SYRIN SQ SCH (08:41)
[2020-09-20] MEDS: NICOTINE PATCH (14MG) 14 MG PATCH.TD24 TD SCH (08:42)
--- NOTE | 2020-09-20 08:42 | NUR ---
RN NOTES DIRECTOR OF BILLING CAME AGAIN TO DO BLOOD WORKS FOR PT BUT PT REFUSED DESPITE EXPLAINING RISKS AND BENEFITS. PT ALSO REFUSED HER AM MEDICATIONS. WILL CONTINUE TO MONITOR.
--- NOTE | 2020-09-20 08:55 | NUR ---
RN NOTES DR EASLEY CAME AND SEEN PT. INFORMED HIM THAT PT REFUSED HER BLOOD WORKS X2 AND AM MEDICATIONS. DR EASLEY WITH ORDER TO DISCHARGE PT TO SNF TODAY.
[2020-09-20] MEDS ORDERED: METO50TA7 PO (08:57)
[2020-09-20] MEDS ORDERED: ASPI-1420 PO (08:57)
[2020-09-20] MEDS ORDERED: ATOR10TA PO (08:57)
[2020-09-20] MEDS ORDERED: POTASSIUM CHLORIDE 20 MEQ TAB.PRT.SR PO ONE (09:00)
[2020-09-20] MEDS ORDERED: POTA20PA41 PO (09:02)
[2020-09-20] MEDS ORDERED: FURO-144 PO (09:02)
[2020-09-20] MEDS: DIGOXIN 0.25 MG TABLET PO SCH (12:02)
[2020-09-20] MEDS: METOPROLOL SUCCINATE 50 MG TAB.SR.24H PO SCH (12:02)
--- NOTE | 2020-09-20 13:50 | NUR ---
RN NOTES PT FOR DISCHARGE THIS AFTERNOON, REPORT GIVEN TO RN FAMILY SERVICES WORKER BENJAMIN OF [facility], PT WILL GO TO RM 54A. CALLED PT'S NEXT OF KIN ALONSO LUJAN X2 AND LEFT MESSAGE VIA VOICEMAIL.
[2020-09-20 16:00] VITALS: BP 114/78
--- NOTE | 2020-09-20 17:47 | NUR ---
RN DISCHARGED NOTES PT DISCHARGED TO [facility] IN STABLE CONDITION. A/O X3. ABLE TO MAKE NEEDS KNOWN. ALL NEEDS AND CARE ATTENDED WELL. V/S TAKEN AND RECORDED. PHOTOS OF SKIN ISSUES TAKEN AND FILED IN CHART. PT HAS ONE THRASHER COLORED RING IN PLACE TO HER RIGHT 4RT FINGER,SHE HAS NO OTHER BELONGINGS. PT WITH NO IV ACCESS. SMOKE CESSATION EDUCATION GIVEN TO PT AND VERBALIZED UNDERSTANDING. REPORT GIVEN VIA TELEPHONE TO RNS BENJAMIN ADLER AND VERBALIZED UNDERSTANDING. EXIT CARE FOLDER HANDED TO NEW CAR SALESPERSON. PT LEFT UNIT@ 1740 VIA [email or web address] ACCOMPANIED BY 2 EMT'S FROM [facility]. AND CHARGE NURSE JADEN AWARE OF DISCHARGE
== END 2020-09-20 17:44 | DRG 194 ==
LOC: ER 12:28 → ICU 15:51 → TELE 09-17 10:50 → MED 09-20 11:01
PROVIDERS: ADMIT Internal Medicine; ATTEND Internal Medicine
DX: I11.0 Hypertensive heart disease with heart failure (principal); I50.23 Acute on chronic systolic (congestive) heart failure; J18.9 Pneumonia, unspecified organism; J96.01 Acute respiratory failure with hypoxia; N17.0 Acute kidney failure with tubular necrosis; I21.4 Non-ST elevation (NSTEMI) myocardial infarction; J44.0 Chronic obstructive pulmonary disease with (acute) lower respiratory infection; F41.9 Anxiety disorder, unspecified; Z91.19 Patient's noncompliance with other medical treatment and regimen; Z79.899 Other long term (current) drug therapy; Z20.828 Contact with and (suspected) exposure to other viral communicable diseases; J98.11 Atelectasis; F32.9 Major depressive disorder, single episode, unspecified; F17.210 Nicotine dependence, cigarettes, uncomplicated; D64.9 Anemia, unspecified; R79.89 Other specified abnormal findings of blood chemistry
CPT/HCPCS: 36415; 36600; 71045-TC; 80048-TC; 80053-TC; 80061-TC; 80076-TC; 80162-TC; 81001; 82803-TC; 83735-TC; 83880; 84100-TC; 84439-TC; 84443-TC; 84484-TC; 85025-TC; 85730-TC; 86140-TC; 87081-TC; 87086-TC; 87186-TC; 93307-TC; 94799-TC; 99082-TC; C9803; G0378; J0456; J0696; J1644; J1650; J1940; J3475; J3490; J7040; J7050; J7060; Q9967

== ENCOUNTER 2020-09-23 13:19 | Inpatient (IN) | payer MEDICAID ==
[~2020-09-23] VITALS: Ht 167.6 cm; Wt 52.2 kg
[~2020-09-23 13:19] MED LIST: ACET325T53 PO; ASCO500C17 PO; ASPI-1420 PO; ATOR10TA PO; BISA10SU61 RC; DIGO250T PO; FURO-144 PO; HEPA100D33 SUBCUT; LACT20SO4 PO; LISI2.5T2 PO; LORA-259 PO; METO50TA7 PO; MULT-439 PO; NA P133E RC; NICO-677 TD; PANT40SU PO; POLY17PO4 PO; POTA20PA41 PO; QUET25TA PO; SENN-175 PO
[2020-09-23] MEDS ORDERED: ALBUTEROL FS 2.5 MG/3 ML VIAL.NEB NEB ONE (14:00)
[2020-09-23] MEDS ORDERED: IPRATROPIUM NEB FS 0.5 MG/2.5 ML AMPUL.NEB NEB ONE (14:00)
[2020-09-23] MEDS ORDERED: methylPREDNISolone SOD SUCC 125 MG/2ML VIAL IV ONE (14:00)
[2020-09-23] MEDS ORDERED: IPRATROPIUM NEB FS 0.5 MG/2.5 ML AMPUL.NEB ONE (14:03)
[2020-09-23] MEDS ORDERED: ALBUTEROL FS 2.5 MG/3 ML VIAL.NEB ONE (14:03)
--- NOTE | 2020-09-23 14:15 | NUR ---
[id number], from snf, c/o sob 60% on room air, 98% on Non rebreather mask. PT AAOX3, PT SEEN & EVAL'D BY DR. AUSTIN. PLACED ON APPOINTMENT MANAGER, SR. WILL CONT TO MONITOR.
[2020-09-23] MEDS ORDERED: methylPREDNISolone SOD SUCC 125 MG/2ML VIAL ONE (14:17)
--- NOTE | 2020-09-23 14:31 | NUR ---
PT GETTING BREATHING TX, PT MICAELA WELL.
--- NOTE | 2020-09-23 15:15 | NUR ---
BREATHING TX DONE. PT STS THAT SHE FEELS BETTER. DENIES CP, SOB, DIZZINESS, N/V AT THIS TIME. VSS. RR EVEN & UNLABORED. WILL CONT TO MONITOR.
--- NOTE | 2020-09-23 15:16 | NUR ---
MOVE SHEET SUBMITTED AND CALLED FOR [facility]ELSY BED.
[2020-09-23 15:32] LABS: BASOPHILS % (AUTO) 0.5 % (0.0-2.0); EOSINOPHILS % (AUTO) 0.4 % (0.0-6.0); HEMATOCRIT 31 % (33-45); HEMOGLOBIN 9.8 g/dL (11.5-14.8); LYMPHOCYTES # (AUTO) 0.9 /CMM (0.8-4.8); LYMPHOCYTES % (AUTO) 13.1 % (20.0-44.0); MEAN CORPUSCULAR HGB CONC 32 g/dl (31.0-36.0); MEAN CORPUSCULAR VOLUME 84 fL (82-100); MONOCYTES # (AUTO) 0.6 /CMM (0.1-1.30); MONOCYTES % (AUTO) 8.2 % (2.0-12.0); NEUTROPHILS # (AUTO) 5.6 /CMM (1.8-8.9); NEUTROPHILS % (AUTO) 77.8 % (43.0-81.0); PLATELET COUNT (AUTO) 320 /CMM (150-450); RED BLOOD CELL COUNT(AUTO) 3.67 MIL/uL (4.0-5.2); WHITE BLOOD COUNT (AUTO) 7.2 K/uL (4.3-11.0)
[2020-09-23 15:53] LABS: CALCIUM, SERUM 8.5 mg/dL (8.5-10.1); CREATININE 0.9 mg/dL (0.6-1.3); POTASSIUM 4.3 mmol/L (3.5-5.1)
--- NOTE | 2020-09-23 17:10 | NUR ---
PT ASLEEP, EASILY AWAKEN BY VERBAL STIMULI. DENIES CP, SOB, DIZZINESS, N/V AT THIS TIME. WILL CONT TO MONITOR.
--- NOTE | 2020-09-23 17:24 | NUR ---
room [id number]
--- NOTE | 2020-09-23 18:41 | NUR ---
room 108
--- NOTE | 2020-09-23 18:43 | NUR ---
AUTHORIZED ADMISSION BY JAMES TRACKING# [id number]
--- NOTE | 2020-09-23 20:24 | NUR ---
CALLED FLOOR FOR REPORT, RN NOT AVAILABLE AT THIS MOMENT.
--- NOTE | 2020-09-23 21:00 | NUR ---
REPORT GIVEN TO JETT ISAACS FOR MARY.
--- NOTE | 2020-09-23 21:10 | NUR ---
KELSY RN NOTE PATIENT ARRIVED TO UNIT AROUND THIS TIME FROM ER VIA GURNEY. PATIENT IS A 60 YEAR OLD FEMALE WITH DX OF CHF EXACERBATION AND HYPOXIA. FULL CODE. ON ISOLATION FOR R/O COVID. COVID RAPID TEST IS NEGATIVE, PCR IS STILL PENDING. PATIENT IS ALERT AND ORIENTED X2. HAS PSYCH HISTORY OF ANXIETY, DEPRESSION, AND PSYCHOSIS. PATIENT HAS AN UNGROOMED APPEARANCE. ALLERGIC TO CODEINE AND MORPHINE. BREATHING IS EVEN AND UNLABORED AT THIS TIME. ON 2 LITERS OXYGEN VIA NASAL CANULA. O2 SAT IS 94%. IV SITE ON RIGHT AC GAUGE 20 IS CLEAN, DRY, AND PATENT. ON ARTHUR CATH, URINE IS CLEAR AND [place] IN COLOR. PATIENT HAS BOWEL MOVEMENT UPON INITIAL ADMISSION ASSESSMENT. STOOL IS BROWN, SOFT, AND PASTY IN CONSISTENCY. NOTED MULTIPLE SCABS ON BILATERAL KNEES AND LEFT ARM. ALSO NOTED DISCOLORATION ON BILATERAL FEET. FEET ARE RED AND PURPLE IN COLOR. NO COMPLAINTS OF ANY PAIN AT THIS TIME, NO APPARENT DISTRESS NOTED. BED IS LOWERED TO LOW POSITION FOR SAFETY. CALL LIGHT IS WITHIN EASY REACH. WILL CONTINUE TO MONITOR.
[2020-09-23] MEDS ORDERED: MAGNESIUM HYDROXIDE 30 ML UDC PO PRN (21:30)
[2020-09-23] MEDS ORDERED: ACETAMINOPHEN 325 MG TABLET PO PRN (21:30)
[2020-09-23] MEDS ORDERED: MAG HYDROX/AL HYDROX/SIMETH 30 ML UDC PO PRN (21:30)
[2020-09-23] MEDS ORDERED: ZOLPIDEM TARTRATE 5 MG TABLET PO PRN (21:30)
[2020-09-23] MEDS ORDERED: ONDANSETRON HCL/PF 4 MG/2 ML VIAL IVP PRN (21:30)
[2020-09-23] MEDS ORDERED: Z GUARD REMEDY 2 OZ OINT TP PRN (21:30)
[2020-09-23] MEDS ORDERED: ALBUTEROL FS 2.5 MG/3 ML VIAL.NEB NEB PRN (21:30)
[2020-09-23 22:07] VITALS: BP 120/83
[2020-09-24] VITALS: BP 113/74
--- NOTE | 2020-09-24 02:20 | NUR ---
RN NOTE DR. TELLO CAME TO SEE PATIENT AROUND THIS TIME. INFORMED DOCTOR THAT PATIENT REFUSED BLOOD DRAW FROM LAB UPON ADMISSION DESPITE MULTIPLE NURSES EXPLAINING BENEFITS OD BLOOD DRAW, STILL PATIENT REFUSED. NO NEW ORDERS FROM DR. TELLO.
--- NOTE | 2020-09-24 02:25 | NUR ---
RN NOTE RECEIVED NEW ORDER FOR PSYCH CONSULT. ORDER NOTED AND CARRIED OUT.
[2020-09-24 04:00] VITALS: BP 101/59
[2020-09-24] MEDS ORDERED: methylPREDNISolone SOD SUCC 125 MG/2ML VIAL IV SCH (05:00)
--- NOTE | 2020-09-24 06:36 | NUR ---
RN NOTE PATIENT KEPT CLEAN, DRY, AND COMFORTABLE THROUGHOUT THE NIGHT. LAB DRAW DONE IN AM. DUE MED GIVEN ORDERED AND TOLERATED WELL. WILL ENDORSE TO AM SHIFT FOR CONTINUATION OF CARE.
[2020-09-24 07:14] LABS: BASOPHILS % (AUTO) 0.1 % (0.0-2.0); HEMATOCRIT 31 % (33-45); HEMOGLOBIN 9.9 g/dL (11.5-14.8); LYMPHOCYTES # (AUTO) 0.7 /CMM (0.8-4.8); LYMPHOCYTES % (AUTO) 12.2 % (20.0-44.0); MEAN CORPUSCULAR HGB CONC 32 g/dl (31.0-36.0); MEAN CORPUSCULAR VOLUME 84 fL (82-100); MONOCYTES # (AUTO) 0.3 /CMM (0.1-1.30); MONOCYTES % (AUTO) 6.3 % (2.0-12.0); NEUTROPHILS # (AUTO) 4.3 /CMM (1.8-8.9); NEUTROPHILS % (AUTO) 81.4 % (43.0-81.0); PLATELET COUNT (AUTO) 336 /CMM (150-450); RED BLOOD CELL COUNT(AUTO) 3.72 MIL/uL (4.0-5.2); WHITE BLOOD COUNT (AUTO) 5.3 K/uL (4.3-11.0)
[2020-09-24] MEDS ORDERED: PANTOPRAZOLE 40 MG TABLET.DR PO SCH (07:30)
[2020-09-24] MEDS ORDERED: IPRATROPIUM NEB FS 0.5 MG/2.5 ML AMPUL.NEB NEB SCH (07:35)
--- NOTE | 2020-09-24 07:46 | NUR ---
KELSY RN NOTE PATIENT IN BED ALERT AWAKE BUT VERY CONFUSED AND AGITATED REFUSING TO TAKE VS ON 2L NC ,NO SOB NOTED AT THIS TIME, ON TELE MONITOR SR HR 94, UNABLE TO FLUSH RT AC HL PATIENT VERY AGITATED STATED GO AWAY FROM ME, BED IN LOWEST AND LOCKED POSITION, WILL CONT TO MONITOR
[2020-09-24 08:00] VITALS: BP_SYST 101; BP_SYST 151; BP_DIAS 59; BP_DIAS 61
[2020-09-24 08:13] LABS: THYROID STIMULATING HORMONE 0.737 uIU/mL (0.358-3.74)
[2020-09-24 08:22] LABS: CALCIUM, SERUM 8.7 mg/dL (8.5-10.1); CREATININE 0.7 mg/dL (0.6-1.3); PHOSPHORUS 3.8 mg/dL (2.5-4.9); POTASSIUM 3.7 mmol/L (3.5-5.1)
--- NOTE | 2020-09-24 08:44 | NUR ---
MS RN NOTE UNABLE TO TO GIVE ASA AND LOVENOX NONCOMPLIANT WITH TX EXPLAINED OF IMPORTANCE STILL REFUSING , ALSO REFUSED TO DO CHEST X RAY DESPITE EXPLANATION
[2020-09-24] MEDS ORDERED: FUROSEMIDE 40 MG/4 ML VIAL IV SCH (09:00)
[2020-09-24] MEDS ORDERED: LACTULOSE 10 G/15 ML UDC (PYXIS) PO PRN (09:00)
[2020-09-24] MEDS ORDERED: ENOXAPARIN SODIUM 40 MG/0.4 ML DISP.SYRIN SQ SCH (09:00)
[2020-09-24] MEDS ORDERED: POLYETHYLENE GLYCOL 3350 17 GM POWD.PACK PO PRN (09:00)
[2020-09-24] MEDS ORDERED: POTASSIUM CHLORIDE 20 MEQ POWDER PACKET PO SCH (09:00)
[2020-09-24] MEDS ORDERED: FUROSEMIDE 100 MG/10 ML VIAL IV SCH (09:00)
[2020-09-24] MEDS ORDERED: ASPIRIN EC 81 MG TABLET.DR PO SCH (09:00)
[2020-09-24] MEDS ORDERED: POTASSIUM CHLORIDE 20 MEQ TAB.PRT.SR PO SCH (09:00)
[2020-09-24] MEDS ORDERED: BISACODYL SUPP (10 MG) 10 MG/SUPP.RECT SUPP.RECT RC PRN (09:00)
[2020-09-24] MEDS: ASCORBIC ACID 500 MG TABLET PO SCH (09:00)
[2020-09-24] MEDS ORDERED: ASPIRIN 81 MG TAB.CHEW PO SCH (09:00)
[2020-09-24] MEDS ORDERED: ALBUTEROL SULFATE 8 GM HFA.AER.AD IH PRN (09:00)
[2020-09-24] MEDS: PANTOPRAZOLE 40 MG/PACK PACK PO SCH (09:00)
--- NOTE | 2020-09-24 09:30 | NUR ---
ms rn note dr mac notified that troponin 0.202 bnp [id number] aware that on Lasix
[2020-09-24] MEDS: QUETIAPINE FUMARATE 25 MG TABLET PO SCH ×2 (09:35→16:25)
[2020-09-24] MEDS: MULTIVIT W/MINERALS 1 TAB TABLET PO SCH (09:35)
[2020-09-24] MEDS: POTASSIUM CHLORIDE 20 MEQ POWDER PACKET PO SCH ×3 (09:35→11:38)
[2020-09-24] MEDS: LISINOPRIL (5MG) 5 MG TABLET PO SCH (09:36)
[2020-09-24] MEDS: METOPROLOL SUCCINATE 50 MG TAB.SR.24H PO SCH (09:37)
[2020-09-24] MEDS: HEPARIN SODIUM, PORCINE 5000 UNITS/1 ML VIAL SQ SCH ×2 (09:39→21:20)
--- NOTE | 2020-09-24 11:48 | NUR ---
telephone maintainer note patient requested chocolate pudding, per dr estefania walker to have it will f\u
[2020-09-24 12:00] VITALS: BP 124/72
--- NOTE | 2020-09-24 12:31 | NUR ---
telephone sales agent note called to dr mac notified that some po meds refused but mostly took them but iv Lasix partially given become agitated and not cooperative , ordered Lasix 40 mg po bid and kcl 20 mg bid, will f\u
[2020-09-24] MEDS: DIGOXIN 0.25 MG TABLET PO SCH (12:55)
--- NOTE | 2020-09-24 15:00 | NUR ---
ms rn note called to [facility] about dr sifuentes spoke with charge nurse ststed that did not come yet ,will f\u
[2020-09-24 16:00] VITALS: BP 135/70
[2020-09-24] MEDS: FUROSEMIDE 40 MG TABLET PO SCH (16:25)
[2020-09-24] MEDS: POTASSIUM CHLORIDE 20 MEQ TAB.PRT.SR PO SCH (16:25)
--- NOTE | 2020-09-24 18:05 | NUR ---
ms rn note trying to remove hl on rt ac ,explained of importance of hl , still wants to remove, spoke with dr mac ordered if patient get agitated ok to remove ,will f\u
--- NOTE | 2020-09-24 18:40 | NUR ---
ms rn note all needs attended, no sob noted at this time,bed in lowest and locked position, will cont to monitor closely
--- NOTE | 2020-09-24 19:45 | NUR ---
RN OPENING NOTE RECEIVED PATIENT IN BED RESTING ALERT CONFUSED VERBALLY RESPONSIVE ON MED SURG MONITORING,ON 4L OXYGEN VIA NASAL CANNULA,O2:92% IV SITE IS ON RIGHT AC INTACT PATENT,FLUSHED,ON ARTHUR CATHETER, URINE DRAINING YELLOW AND CLEAR BY GRAVITY,BED IN LOW POSITION AND LOCKED BED ALARM IS ON,SAFETY MEASURE IMPLEMENT,CONTINUE TO MONITOR.
[2020-09-24 20:00] VITALS: BP 95/57
[2020-09-24] MEDS: IPRATROPIUM BROMIDE 14 GM INHALER (or 12.9 GM) IH SCH (20:06)
--- NOTE | 2020-09-24 21:07 | NUR ---
RT medication dose typo. corrected from dose 14 to 1.
[2020-09-24] MEDS: SENNOSIDES 8.6 MG TABLET PO SCH (21:20)
[2020-09-24] MEDS: ATORVASTATIN 10 MG TABLET PO SCH (21:20)
[2020-09-25] VITALS: BP 98/60
[2020-09-25 04:00] VITALS: BP 104/64
[2020-09-25] MEDS: LORAZEPAM 1 MG TABLET PO PRN ×2 (04:40→22:37)
--- NOTE | 2020-09-25 04:40 | NUR ---
RN NOTE PATIENT IS AGITATED,CRYING WANTS TO GO BATHROOM,NOT ABLE TO WALK,ATIVAN 1MG PRN GIVEN CONTINUE TO MONITOR.
--- NOTE | 2020-09-25 05:30 | NUR ---
RN NOTE PATIENT REFUSED STAFF TAKE PICTURE FROM HER SKIN DISCOLORATION,CONTINUE TO MONITOR.
[2020-09-25 06:25] LABS: BASOPHILS % (AUTO) 0.1 % (0.0-2.0); EOSINOPHILS % (AUTO) 0.3 % (0.0-6.0); HEMATOCRIT 32 % (33-45); LYMPHOCYTES # (AUTO) 1.1 /CMM (0.8-4.8); LYMPHOCYTES % (AUTO) 8.7 % (20.0-44.0); MEAN CORPUSCULAR HGB CONC 31 g/dl (31.0-36.0); MEAN CORPUSCULAR VOLUME 85 fL (82-100); MONOCYTES # (AUTO) 0.9 /CMM (0.1-1.30); MONOCYTES % (AUTO) 7.2 % (2.0-12.0); NEUTROPHILS % (AUTO) 83.7 % (43.0-81.0); PLATELET COUNT (AUTO) 354 /CMM (150-450); RED BLOOD CELL COUNT(AUTO) 3.76 MIL/uL (4.0-5.2); WHITE BLOOD COUNT (AUTO) 13.1 K/uL (4.3-11.0)
[2020-09-25 06:39] LABS: ALBUMIN 2.1 g/dL (3.4-5.0); BILIRUBIN,TOTAL 0.7 mg/dL (0.2-1.0); CALCIUM, SERUM 8.5 mg/dL (8.5-10.1); CREATININE 0.9 mg/dL (0.6-1.3); MAGNESIUM 1.8 mg/dL (1.8-2.4); PHOSPHORUS 2.6 mg/dL (2.5-4.9); POTASSIUM 4.5 mmol/L (3.5-5.1); TOTAL PROTEIN, SERUM 5.8 g/dL (6.4-8.2)
--- NOTE | 2020-09-25 06:49 | NUR ---
RN CLOSING NOTE PATIENT REMAINS AGITATED,ANXIOUS ALERT CONFUSED, ON 4L OXYGEN VIA NASAL CANNULA O2:94%,REFUSED STAFF TAKE PICTURES OF HER SKIN DISCOLORATION,CRYING WANTS TO GO HOME BUT NOT ABLE TO WALK, WILL SEE HER TODAY.KEPT CLEAN AND DRY ALL THE TIME,IV SITE IS ON RIGHT AC INTACT PATENT,ENDORSE NEXT COMING SHIFT FOR CONTINUATION OF CARE.
--- NOTE | 2020-09-25 07:15 | NUR ---
RN OPENING NOTE RECEIVED PT IN BED RESTING. A/O X2. CONFUSED. VERBALLY RESPONSIVE. ON 4L O2 VIA NASAL CANNULA SATURATING @96%. R AC #20 INTACT, PATENT AND FLUSHED. WITH ARTHUR CATHETER INTACT AND DRAINING YELLOWISH COLORED URINE. SAFETY MEASURES IMPLEMENTED. BED LOCKED AND IN LOWEST POSITION. BED ALARM ON. WILL CONTINUE TO MONITOR.
[2020-09-25 08:00] VITALS: BP 101/61
[2020-09-25] MEDS: MULTIVIT W/MINERALS 1 TAB TABLET PO SCH (08:09)
[2020-09-25] MEDS: PANTOPRAZOLE 40 MG/PACK PACK PO SCH (08:09)
[2020-09-25] MEDS: POTASSIUM CHLORIDE 20 MEQ TAB.PRT.SR PO SCH ×2 (08:09→17:39)
[2020-09-25] MEDS: ASCORBIC ACID 500 MG TABLET PO SCH (08:09)
[2020-09-25] MEDS: FUROSEMIDE 40 MG TABLET PO SCH ×2 (08:09→17:38)
[2020-09-25] MEDS: LISINOPRIL (5MG) 5 MG TABLET PO SCH (08:10)
[2020-09-25] MEDS: QUETIAPINE FUMARATE 25 MG TABLET PO SCH ×2 (08:10→17:39)
[2020-09-25] MEDS: ASPIRIN EC 81 MG TABLET.DR PO SCH (08:10)
[2020-09-25] MEDS: METOPROLOL SUCCINATE 50 MG TAB.SR.24H PO SCH (08:10)
[2020-09-25] MEDS: HEPARIN SODIUM, PORCINE 5000 UNITS/1 ML VIAL SQ SCH ×2 (08:12→21:00)
[2020-09-25] MEDS: IPRATROPIUM BROMIDE 14 GM INHALER (or 12.9 GM) IH SCH ×4 (08:12→21:43)
--- NOTE | 2020-09-25 09:07 | NUR ---
As per Dr. Handy thoracentesis is on hold till 09-26-2020, as pt last dose of Heparin was at 08.30 on 09-25-2020.
[2020-09-25] MEDS: METOLAZONE 2.5 MG TABLET PO SCH (10:38)
[2020-09-25] MEDS ORDERED: OLANZAPINE 10 MG VIAL IM PRN (11:00)
[2020-09-25 12:00] VITALS: BP 105/65
--- NOTE | 2020-09-25 12:31 | NUR ---
WOUND CARE CONSULT: REVIEWED CHART, NURSING DOCUMENTATION AND PHOTOS WHICH INDICATE DRY SCABS TO ARMS AND LEGS WITH SKIN DISCOLORATION, PRESENT ON ADMISSION. RECOMMENDATIONS MADE FOR SKIN PROTECTION. DISCUSSED WITH NURSING STAFF. MD IN AGREEMENT WITH PLAN OF CARE.
[2020-09-25] MEDS: DIGOXIN 0.25 MG TABLET PO SCH (13:46)
[2020-09-25 16:00] VITALS: BP 114/88
--- NOTE | 2020-09-25 19:30 | NUR ---
RN CLOSING NOTES PT IN BED RESTING. A/O X2. CONFUSED. VERBALLY RESPONSIVE. ON 4L O2 VIA NASAL CANNULA SATURATING @96%. R AC #20 INTACT, PATENT AND FLUSHED. WITH ARTHUR CATHETER INTACT AND DRAINING YELLOWISH COLORED URINE. NO PAIN REPORTED AT THIS TIME. SAFETY MEASURES IMPLEMENTED. BED LOCKED AND IN LOWEST POSITION. BED ALARM ON. WILL ENDORSE TO NIGHT NURSE FOR MARY.
[2020-09-25 20:00] VITALS: BP 110/75
--- NOTE | 2020-09-25 20:10 | NUR ---
RN NOTES PATIENT IN BED RESTING. A/O X2. CONFUSED. VERBALLY RESPONSIVE. ON 4L O2 VIA NASAL CANNULA SATURATING @96%. R AC #20 INTACT, PATENT AND FLUSHED WITH NS. WITH ARTHUR CATHETER INTACT AND DRAINING YELLOWISH COLORED URINE. SAFETY MEASURES IMPLEMENTED. BED LOCKED AND IN LOWEST POSITION. SIDE RAILS UP X2. BED ALARM ON. WILL CONTINUE TO MONITOR.
[2020-09-25] MEDS: SENNOSIDES 8.6 MG TABLET PO SCH (21:33)
[2020-09-25] MEDS: ATORVASTATIN 10 MG TABLET PO SCH (21:33)
[2020-09-25] MEDS: HYDROCODONE/APAP 5/325MG TABLET PO PRN (21:34)
[2020-09-26 04:00] VITALS: BP 119/84
--- NOTE | 2020-09-26 06:12 | NUR ---
LEFT VOICEMAIL MESSAGE TO DAUGHTER ALONSO [phone] REGARDING VERBAL CONSENT FOR US GUIDED THORACENTESIS. WAITING FOR CALL BACK.
[2020-09-26 06:22] LABS: BASOPHILS % (AUTO) 0.3 % (0.0-2.0); EOSINOPHILS % (AUTO) 0.7 % (0.0-6.0); HEMATOCRIT 31 % (33-45); HEMOGLOBIN 9.7 g/dL (11.5-14.8); LYMPHOCYTES # (AUTO) 1.3 /CMM (0.8-4.8); LYMPHOCYTES % (AUTO) 18.1 % (20.0-44.0); MEAN CORPUSCULAR HGB CONC 32 g/dl (31.0-36.0); MEAN CORPUSCULAR VOLUME 85 fL (82-100); MONOCYTES # (AUTO) 0.9 /CMM (0.1-1.30); MONOCYTES % (AUTO) 13.3 % (2.0-12.0); NEUTROPHILS # (AUTO) 4.7 /CMM (1.8-8.9); NEUTROPHILS % (AUTO) 67.6 % (43.0-81.0); PLATELET COUNT (AUTO) 330 /CMM (150-450); RED BLOOD CELL COUNT(AUTO) 3.64 MIL/uL (4.0-5.2); WHITE BLOOD COUNT (AUTO) 6.9 K/uL (4.3-11.0)
--- NOTE | 2020-09-26 06:47 | NUR ---
RN NOTES PATIENT IN BED RESTING. A/O X2. CONFUSED AND SHOUTING. VERBALLY RESPONSIVE. ON 4L O2 VIA NASAL CANNULA SATURATING @96%. R AC #20 DISLODGED. ATTEMPTED IV INSERTION X3, RISKS AND BENEFITS EXPLAINED. STILL STRONGLY REFUSED. WITH ARTHUR CATHETER INTACT AND DRAINING YELLOWISH COLORED URINE, OUTPUT 400. NO CALL BACK FROM ALONSO REGARDING CONSENT FOR US GUIDED THORACENTESIS, WILL ENDORSE TO NEXT SHIFT. SAFETY MEASURES IMPLEMENTED. BED LOCKED AND IN LOWEST POSITION. SIDE RAILS UP X2. BED ALARM ON. WILL ENDORSE TO NEXT SHIFT.
[2020-09-26 06:52] LABS: CALCIUM, SERUM 8.3 mg/dL (8.5-10.1); CREATININE 0.7 mg/dL (0.6-1.3); POTASSIUM 4.5 mmol/L (3.5-5.1)
--- NOTE | 2020-09-26 08:11 | NUR ---
PT RECEIVED IN BED Addendum: 09/26/20 at 0818 by THOMAS HURTADO RN PT RECEIVED IN BED, EYES OPEN, NASAL CANNULA ON 4L, AT TIMES REMOVED BY PT, O2 SAT 95%. PT AO X 2. PT STATES SHE WANTS TO LEAVE AND DOESNT WANT THORACENTESIS, DENIES THAT SHE NEEDS PROCEDURE. PREVIOUS SHIFT UNABLE TO GET AHOLD OF DAUGHTER FOR CONSENT. NO RESPIRATORY DISTRESS OR SOB. PT HAS ARTHUR DRAINING CLEAR YELLOW URINE 400 ML OUTPUT PREVIOUS SHIFT. PT RAC #20 DISLODGED PER PREVIOUS SHIFT. PT JHAS SCABS ON KNEES AND LEFT ARM. BED ALARM ON, BED LOCKED LOWEST POSITION, CALL LIGHT WITHIN REACH. WILL CONTINUE TO MONITOR CLOSELY.
[2020-09-26] MEDS: MULTIVIT W/MINERALS 1 TAB TABLET PO SCH (08:50)
[2020-09-26] MEDS: LORAZEPAM 1 MG TABLET PO PRN (08:50)
[2020-09-26] MEDS: ASCORBIC ACID 500 MG TABLET PO SCH (08:50)
[2020-09-26] MEDS: POTASSIUM CHLORIDE 20 MEQ TAB.PRT.SR PO SCH ×2 (08:50→16:38)
[2020-09-26] MEDS: FUROSEMIDE 40 MG TABLET PO SCH ×2 (08:51→16:39)
[2020-09-26] MEDS: ASPIRIN EC 81 MG TABLET.DR PO SCH (08:52)
[2020-09-26] MEDS: QUETIAPINE FUMARATE 25 MG TABLET PO SCH ×2 (08:55→16:38)
[2020-09-26] MEDS: METOPROLOL SUCCINATE 50 MG TAB.SR.24H PO SCH (09:00)
[2020-09-26] MEDS: LISINOPRIL (5MG) 5 MG TABLET PO SCH (09:00)
[2020-09-26] MEDS: METOLAZONE 2.5 MG TABLET PO SCH (09:00)
[2020-09-26] MEDS: HYDROCODONE/APAP 5/325MG TABLET PO PRN (09:04)
--- NOTE | 2020-09-26 09:22 | NUR ---
PT BP 92/51, HR 86. ZAROXOL, LISINOPRIL, METOPROLOL WITHHELD, LASIX GIVEN
[2020-09-26] MEDS ORDERED: FUROSEMIDE 40 MG TABLET PO ONE (09:30)
--- NOTE | 2020-09-26 09:32 | NUR ---
per lab patient negative PCR RELAYED TO DR. EASLEY awaits bed from noncovid floor,[facility]. sup aware.
[2020-09-26] MEDS: PANTOPRAZOLE 40 MG/PACK PACK PO SCH (10:40)
[2020-09-26] MEDS: HEPARIN SODIUM, PORCINE 5000 UNITS/1 ML VIAL SQ SCH ×2 (10:42→21:58)
--- NOTE | 2020-09-26 10:45 | NUR ---
Per JETT Davis, patient refusing ultrasound guided thoracentesis. Also family members could not be reached to sign off consent.
[2020-09-26 11:05] VITALS: BP 101/67
[2020-09-26 11:26] VITALS: BP 101/67
[2020-09-26] MEDS: IPRATROPIUM BROMIDE 14 GM INHALER (or 12.9 GM) IH SCH ×3 (11:30→16:48)
--- NOTE | 2020-09-26 11:39 | NUR ---
RN NOTES PT TRANSFERRED FROM [facility] TO 324-1 VIA WHEELCHAIR AT 1100 ACCOMPANIED BY RN SILVIA AND PURVI. PT IS A/O 2-3. ABLE TO MAKE NEEDS KNOW. ORIENTED TO AND STAFF. V/S CHECKED, STABLE AND RECORDED. PT ON ROOM AIR, BREATHING EVEN AND UNLABORED, NO IV ACCESS, MD AWARE. SAFETY MEASURES INITIATED: BED PLACED IN LOWEST LOCKED POSITION WITH SR UP X2. BED ALARM ON AND CALL LIGHT PLACED WITHIN EASY REACH. WILL CONTINUE TO MONITOR PT.
[2020-09-26 16:00] VITALS: BP 106/65
[2020-09-26] MEDS: DIGOXIN 0.25 MG TABLET PO SCH (16:38)
--- NOTE | 2020-09-26 18:50 | NUR ---
RN CLOSING NOTES PT IN BED RESTING AT MODERATE HIGH BACKREST POSITION. A/O 2-3. ABLE TO MAKE NEEDS KNOWN. ON ROOM AIR, BREATHING EVEN AND UNLABORED, NO SOB NOTED DURING SHIFT. NO IV ACCESS, MD AWARE. ARTHUR IN PLACE AND ACTIVELY DRAINING CLEAR YELLOW URINE TO BEDSIDE DRAINAGE BAG, ARTHUR CARE DONE. SAFETY MEASURES KEPT IN PLACE: BED IN LOWEST LOCKED POSITION WITH SR UP X2. BED ALARM ON AND CALL LIGHT WITHIN EASY REACH. ALL NEEDS/CARE ANTICIPATED AND MET. WILL ENDORSE TO GLOBAL MARKETING OPERATIONS MANAGER NURSE FOR CO
--- NOTE | 2020-09-26 19:30 | NUR ---
MS RN OPENING NOTE RECEIVED PATINE IN BED. A/OX1-2. TOLERATING ROOM AIR. RESPIRATIONS ARE EVEN AND UNLABORED. NO S/S SOB NOTED. NO C/O PAIN AT THIS TIME. IN NO APPARENT DISTRESS. NO IV ACCESS NOTED, PER DAY RN REPORT MD AWARE. ARTHUR CATHETER IS PRESENT, DRAIING TO GRAVITY, URINE IS YELLOW AN DCLEAR. BED IS LOW AND LOCKED, HOB ELEVATED IN SEMI FOWLERS, SIDE RIALS UP X3. CALL LIGHT WITHIN REACH. WILL CONTINUE TO MONITOR.
[2020-09-26 20:00] VITALS: BP 103/68
[2020-09-26] MEDS: ATORVASTATIN 10 MG TABLET PO SCH (21:57)
[2020-09-26] MEDS: SENNOSIDES 8.6 MG TABLET PO SCH (22:00)
--- NOTE | 2020-09-26 22:04 | NUR ---
MS RN NOTE PATIENT REFUSED S[place], STATES HAVING DIARRHEA. WILL CONTINUE TO MONITOR.
[2020-09-27] MEDS: LORAZEPAM 1 MG TABLET PO PRN ×2 (02:48→14:48)
--- NOTE | 2020-09-27 07:12 | NUR ---
MS RN CLOSING NOTE PATIENT SITTING IN BED. A/OX1-2. ON OXYGEN 2L/MIN VIA NASAL CANNULA. STATES SOB AFTER SCREAMING FOR BREAKFAST, INFORRMED WHEN BREAKFAST WILL BE SERVED, A SNACKS GIVEN AND PATIENT CONTINUES TO SCREAM. ALSO SCREAMING FOR BLANKETS, WARM BLANKETS HAVE BEEN BROUGHT MULTIPLE TIMES BUT PATIENT CONTINUES TO REMOVE THEM AND SAY SHES FREEZING. NO C/O PAIN T/O SHIFT. IN NO APPARENT DISTRESS. CONTINUES TO HAVE NO IV ACCESS. ARTHUR CATHETER IS MAINTAINED, DRAINING TO GRAVITY, OUTPUT 800ML. BED REMAINS LOW AND LOCKED, HOB ELEVATED IN SEMI FOWLERS, SIDE RIALS UP X3. CALL LIGHT WITHIN REACH. WILL ENDORSE TO NEXT SHIFT.
[2020-09-27] MEDS: ASPIRIN EC 81 MG TABLET.DR PO SCH (09:32)
[2020-09-27] MEDS: PANTOPRAZOLE 40 MG/PACK PACK PO SCH (09:32)
[2020-09-27] MEDS: MULTIVIT W/MINERALS 1 TAB TABLET PO SCH (09:32)
[2020-09-27] MEDS: FUROSEMIDE 40 MG TABLET PO SCH ×2 (09:32→17:47)
[2020-09-27] MEDS: DIVALPROEX SODIUM 250 MG TABLET.DR PO SCH ×3 (09:32→17:47)
[2020-09-27] MEDS: POTASSIUM CHLORIDE 20 MEQ TAB.PRT.SR PO SCH ×2 (09:32→17:47)
[2020-09-27] MEDS: METOLAZONE 2.5 MG TABLET PO SCH (09:33)
[2020-09-27] MEDS: ASCORBIC ACID 500 MG TABLET PO SCH (09:33)
[2020-09-27] MEDS: QUETIAPINE FUMARATE 25 MG TABLET PO SCH ×2 (09:33→17:47)
[2020-09-27] MEDS: METOPROLOL SUCCINATE 50 MG TAB.SR.24H PO SCH (09:33)
[2020-09-27 09:45] VITALS: BP 129/87
[2020-09-27] MEDS: HEPARIN SODIUM, PORCINE 5000 UNITS/1 ML VIAL SQ SCH ×2 (09:45→21:10)
[2020-09-27 10:22] LABS: BASOPHILS % (AUTO) 0.5 % (0.0-2.0); EOSINOPHILS % (AUTO) 0.8 % (0.0-6.0); HEMATOCRIT 33 % (33-45); HEMOGLOBIN 10.4 g/dL (11.5-14.8); LYMPHOCYTES % (AUTO) 13.3 % (20.0-44.0); MEAN CORPUSCULAR HGB CONC 32 g/dl (31.0-36.0); MEAN CORPUSCULAR VOLUME 84 fL (82-100); MONOCYTES # (AUTO) 0.5 /CMM (0.1-1.30); MONOCYTES % (AUTO) 6.6 % (2.0-12.0); NEUTROPHILS # (AUTO) 5.7 /CMM (1.8-8.9); NEUTROPHILS % (AUTO) 78.8 % (43.0-81.0); PLATELET COUNT (AUTO) 287 /CMM (150-450); RED BLOOD CELL COUNT(AUTO) 3.89 MIL/uL (4.0-5.2); WHITE BLOOD COUNT (AUTO) 7.2 K/uL (4.3-11.0)
[2020-09-27] MEDS: LISINOPRIL (5MG) 5 MG TABLET PO SCH (10:30)
[2020-09-27] MEDS: HYDROCODONE/APAP 5/325MG TABLET PO PRN (10:35)
[2020-09-27 10:38] LABS: ALBUMIN 2.3 g/dL (3.4-5.0); BILIRUBIN,TOTAL 0.8 mg/dL (0.2-1.0); CALCIUM, SERUM 8.3 mg/dL (8.5-10.1); CREATININE 0.8 mg/dL (0.6-1.3); MAGNESIUM 1.7 mg/dL (1.8-2.4); PHOSPHORUS 3.4 mg/dL (2.5-4.9); POTASSIUM 4.1 mmol/L (3.5-5.1); TOTAL PROTEIN, SERUM 5.9 g/dL (6.4-8.2)
--- NOTE | 2020-09-27 11:08 | NUR ---
DR. EASLEY IN EARLIER,F/C REMOVED AT THIS TIME.
--- NOTE | 2020-09-27 12:05 | NUR ---
INCONTINENT OF LRG. AMT. OF URINE.SIDE RAILS UP AND CALLING OUT CONT. FOR HELP.CALL MEDEIROS WITHIN REACH.
[2020-09-27] MEDS: DIGOXIN 0.25 MG TABLET PO SCH (13:00)
--- NOTE | 2020-09-27 15:00 | NUR ---
MEDICATED FOR PAIN.
[2020-09-27 16:00] VITALS: BP 101/58
--- NOTE | 2020-09-27 18:00 | NUR ---
GIVEN PAIN MED X1 AND ATIVAN X1.
--- NOTE | 2020-09-27 19:30 | NUR ---
MS RN OPENING NOTE RECEIVED PATIENT IN BED. A/OX1-2. NO ACUTE DISTRESS NOTED. RESPIRATIONS ARE EVEN AND UNLABORED. NO IV ACCESS PER DAY SHIFT, MD AWARE. NO C/O PAIN/DISCOMFORT AT THIS TIME. BED IS LOW AND LOCKED, HOB ELEVATED IN SEMI FOWLERS, SIDE RIALS UP X3. CALL LIGHT WITHIN REACH. WILL CONTINUE TO MONITOR.
[2020-09-27 20:00] VITALS: BP 99/54
[2020-09-27] MEDS: ATORVASTATIN 10 MG TABLET PO SCH (21:01)
[2020-09-27] MEDS: SENNOSIDES 8.6 MG TABLET PO SCH (21:06)
--- NOTE | 2020-09-28 06:40 | NUR ---
MS-RN CLOSING NOTES PATIENT IN BED RESTING COMFORTABLY. A/OX2. ABLE TO MAKE NEEDS KNOWN. RESPIRATIONS ARE EVEN AND UNLABORED, NO SOB NOTED. NO IV ACCESS, MD AWARE. INCONTINENT CARE RENDERED. SAFETY MEASURES IMPLEMENTED. BED IN LOWEST AND LOCKED POSITION WITH SIDE RAILS UP X2. BED ALARM ON AT ALL TIMES. CALL LIGHT WITHIN REACH. ALL NEEDS MET AND ANTICIPATED. WILL ENDORSE TO THE DAY SHIFT NURSE FOR CONTINUITY OF CARE.
--- NOTE | 2020-09-28 07:30 | NUR ---
MS/RN OPENING NOTE Patient resting in bed, A&O x 2, able to make needs known. Breathing even and non-labored on RA, no SOB noted. No cardiac distress noted. No IV access noted, MD aware. Sensation from all peripheral extremities intact. Bed locked to its lowest position, side rails x 2 up, call light in hand. Will continue with current medical management.
[2020-09-28] MEDS: LISINOPRIL (5MG) 5 MG TABLET PO SCH (09:00)
[2020-09-28] MEDS: ASCORBIC ACID 500 MG TABLET PO SCH (09:11)
[2020-09-28] MEDS: METOLAZONE 2.5 MG TABLET PO SCH (09:11)
[2020-09-28] MEDS: QUETIAPINE FUMARATE 25 MG TABLET PO SCH (09:11)
[2020-09-28] MEDS: FUROSEMIDE 40 MG TABLET PO SCH (09:11)
[2020-09-28] MEDS: ASPIRIN EC 81 MG TABLET.DR PO SCH (09:11)
[2020-09-28 09:12] VITALS: BP 98/65
[2020-09-28] MEDS: METOPROLOL SUCCINATE 50 MG TAB.SR.24H PO SCH (09:12)
[2020-09-28] MEDS: MULTIVIT W/MINERALS 1 TAB TABLET PO SCH (09:12)
[2020-09-28] MEDS: DIVALPROEX SODIUM 250 MG TABLET.DR PO SCH ×2 (09:12→12:14)
[2020-09-28] MEDS: POTASSIUM CHLORIDE 20 MEQ TAB.PRT.SR PO SCH (09:12)
[2020-09-28] MEDS: HEPARIN SODIUM, PORCINE 5000 UNITS/1 ML VIAL SQ SCH (09:17)
[2020-09-28] MEDS: PANTOPRAZOLE 40 MG/PACK PACK PO SCH (09:18)
[2020-09-28] MEDS ORDERED: POTA20TA83 PO (09:41)
[2020-09-28] MEDS ORDERED: DIVA250T4 PO (09:41)
[2020-09-28] MEDS ORDERED: FURO40TA5 PO (09:41)
[2020-09-28] MEDS: LORAZEPAM 1 MG TABLET PO PRN (11:19)
--- NOTE | 2020-09-28 11:19 | NUR ---
MS/RN NOTE Patient anxious and agitated, screaming "I want to leave, I need to get to my hotel" constantly. Administered ativan 1 mg. Will continue to monitor closely.
--- NOTE | 2020-09-28 11:28 | NUR ---
MS/RN NOTE Patient refused photos for discharge. Educated patient its importance, risks, and benefits, insists on refusal, states "I just want to leave." Will continue to monitor closely.
[2020-09-28] MEDS: DIGOXIN 0.25 MG TABLET PO SCH (12:14)
--- NOTE | 2020-09-28 13:50 | NUR ---
MS/INSIDE SALES RECRUITER NOTE Patient picked up by ambulance, at 1350. All needs met and attended to. Denies any pain/discomfort at this time. Breathing even and non-labored on RA. No respiratory or cardiac distress noted. Sensation from all peripheral extremities intact. Photos for skin impairments not taken, patient refused, explained its risks and benefits. Educated patient and Merary (nursing central supply technician supervisor from [facility]) regarding discharge instructions, answered all their questions to their satisfaction. Patient and Merary verbalized understanding. Patient left facility @ 1350 with hospital documents in hand and no belongings noted.
== END 2020-09-28 14:00 | DRG 194 ==
LOC: ER 13:23 → TELE-TD 19:05 → MEDSG1 09-24 08:05 → MED 09-26 10:49
PROVIDERS: ADMIT Student in an Organized Health Care Education/Training Program; ATTEND Internal Medicine
DX: I11.0 Hypertensive heart disease with heart failure (principal); I50.23 Acute on chronic systolic (congestive) heart failure; J44.9 Chronic obstructive pulmonary disease, unspecified; Z79.82 Long term (current) use of aspirin; D64.9 Anemia, unspecified; E78.5 Hyperlipidemia, unspecified; F31.64 Bipolar disorder, current episode mixed, severe, with psychotic features; F41.9 Anxiety disorder, unspecified; I25.2 Old myocardial infarction; Z91.19 Patient's noncompliance with other medical treatment and regimen; Z71.6 Tobacco abuse counseling; F17.210 Nicotine dependence, cigarettes, uncomplicated; E44.0 Moderate protein-calorie malnutrition; Z68.1 Body mass index [BMI] 19.9 or less, adult
CPT/HCPCS: 36415; 71045-TC; 80048-TC; 80053-TC; 80061-TC; 83605-TC; 83735-TC; 83880; 84100-TC; 84443-TC; 84484-TC; 85025-TC; 85610-TC; 87081-TC; 97112-TC; 97530-TC; C9803; G0378; J1644; J1650; J1940; J2930; J3490; J7050; U0003